=== PATIENT | male | born 1980 ===

== ENCOUNTER 2021-07-30 15:38 | Emergency (ER) | payer BC, OTHER ==
--- NOTE | 2021-07-30 16:16 | EDM.PDOC ---
ED HPI GENERAL MEDICAL PROBLEM - General Chief Complaint: Abdominal Pain Stated Complaint: abdominal pain Time Seen by Provider: 07/30/21 15:45 Source of Information: Reports: Patient History Limitations: Reports: No Limitations - History of Present Illness INITIAL COMMENTS - FREE TEXT/NARRATIVE: Patient presents to the ED for abdominal pain that started today. He was fine yesterday. Did not eat any bad food, no sick contacts. Had a normal bowel movement today. normal urination. no fevers. Attempted to eat breakfast but lost his appetite. no vomiting. pain is diffuse and not localized. The drive here did irritate the pain more. 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 [No Known Home Meds] 07/30/21 [History] Past Medical History - Past Health History Medical/Surgical History: Denies Medical/Surgical History Social & Family History - Tobacco Use Tobacco Use Status *Q: Never Tobacco User - Alcohol Use Alcohol Use History: No Alcohol Use in Last Twelve Months: No - Recreational Drug Use Recreational Drug Use: No Drug Use in Last 12 Months: No ED ROS GENERAL - Review of Systems Review Of Systems: See Below Constitutional: Reports: Decreased Appetite. Denies: Fever, Chills, Malaise, Weakness, Fatigue HEENT: Reports: No Symptoms. Denies: Sinus Problem, Throat Pain, Throat Swelling, Vision Change Respiratory: Reports: No Symptoms. Denies: Shortness of Breath, Cough, Sputum Cardiovascular: Reports: No Symptoms. Denies: Chest Pain, Dyspnea on Exertion, Palpitations Endocrine: Reports: No Symptoms. Denies: Fatigue GI/Abdominal: Reports: Abdominal Pain, Decreased Appetite. Denies: Black Stool, Bloody Stool, Diarrhea, Difficulty Swallowing, Nausea, Vomiting : Reports: No Symptoms. Denies: Frequency, Urgency Musculoskeletal: Reports: No Symptoms Skin: Reports: No Symptoms Neurological: Reports: No Symptoms Psychiatric: Reports: No Symptoms ED EXAM, GI/ABD - Physical Exam Exam: See Below Exam Limited By: No Limitations General Appearance: Alert, WD/WN, No Apparent Distress Eyes: Bilateral: Normal Appearance, EOMI Nose: Normal Inspection, Normal Mucosa Throat/Mouth: Normal Lips, Normal Voice, No Airway Compromise Head: Atraumatic Neck: Normal Inspection, Supple, Non-Tender Respiratory/Chest: No Respiratory Distress, Lungs Clear, Normal Breath Sounds, Chest Non-Tender GI/Abdominal Exam: Tender (rlq, no rebound), Abnormal Bowel Sounds (decreased) Extremities: Normal Inspection, Normal Range of Motion, Normal Capillary Refill Neurological: Alert, Oriented, CN II-XII Intact, Normal Cognition, No Motor /Sensory Deficits Psychiatric: Normal Affect Course - Vital Signs Last Recorded V/S: Last Vital Signs Temp 36.8 C 07/30/21 15:38 Pulse 61 07/30/21 15:38 Resp 20 07/30/21 15:38 BP 151/87 H 07/30/21 15:38 Pulse Ox 100 07/30/21 15:38 - Orders/Labs/Meds Orders: Active Orders 24 hr Category Date Time Status Abdomen Pelvis wo Cont [CT] Stat Exams 07/30/21 16:42 Taken Labs: Laboratory Tests 07/30/21 07/30/21 07/30/21 Range/Units 16:16 16:16 16:16 WBC 9.2 (4.0-10.2) K/uL RBC 4.83 (4.33-5.41) M/uL Hgb 14.5 (13.1-16.8) g/dL Hct 41.1 (39.0-49.0) % MCV 85.1 (84.0-98.0) fL MCH 30.0 (28.2-33.3) pg MCHC 35.3 (31.7-36.0) g/dL RDW 14.2 H (11.2-14.1) % Plt Count 133 L (150-350) K/uL Neut % (Auto) 86.2 H (45.0-80.0) % Lymph % (Auto) 8.4 L (10.0-50.0) % [place] % (Auto) 4.8 (2.0-14.0) % Eos % (Auto) 0.5 (0.0-5.0) % Baso % (Auto) 0.1 (0.0-2.0) % Neut # (Auto) 7.91 H (1.40-7.00) K/uL Lymph # (Auto) 0.77 (0.50-3.50) K/uL [place] # (Auto) 0.44 (0.00-1.00) K/uL Eos # (Auto) 0.05 (0.00-0.50) K/uL Baso # (Auto) 0.01 (0.00-0.20) K/uL Sodium 141 (136-145) mmol/L Potassium 4.0 (3.5-5.1) mmol/L Chloride 103 (98-107) mmol/L Carbon Dioxide 28.5 (21.0-32.0) mmol/L Anion Gap 9.5 (7-15) meq/L BUN 21 H (7-18) mg/dL Creatinine 1.03 (0.51-1.17) mg/dL Est Cr Clr Drug Dosing 91.31 mL/min Estimated GFR (MDRD) > 60 mL/min Glucose 110 H (70-99) mg/dL Lactic Acid 1.0 (0.4-2.0) mmol/L Calcium 9.2 (8.5-10.1) mg/dL Total Bilirubin 1.0 (0.2-1.0) mg/dL AST 17 (15-37) U/L ALT 43 (12-78) U/L Alkaline Phosphatase 81 (46-116) IU/L C-Reactive Protein 2.0 H (<=0.9) mg/dL Total Protein 7.6 (6.4-8.2) g/dL Albumin 4.3 (3.4-5.0) g/dL Lipase 77 (73-393) U/L Specimen Type Urine Color Urine Appearance Urine pH (5.0-9.0) Ur Specific [place] (1.005-1.030) Urine Protein (NEGATIVE) mg/dL Urine Glucose (UA) (NEGATIVE) mg/dL Urine Ketones (NEGATIVE) mg/dL Urine Occult Blood (NEGATIVE) Urine Nitrite (NEGATIVE) Urine Bilirubin (NEGATIVE) Urine Urobilinogen (0.2-1.0) E.U./dL Ur Leukocyte Esterase (NEGATIVE) 07/30/21 Range/Units 16:30 WBC (4.0-10.2) K/uL RBC (4.33-5.41) M/uL Hgb (13.1-16.8) g/dL Hct (39.0-49.0) % MCV (84.0-98.0) fL MCH (28.2-33.3) pg MCHC (31.7-36.0) g/dL RDW (11.2-14.1) % Plt Count (150-350) K/uL Neut % (Auto) (45.0-80.0) % Lymph % (Auto) (10.0-50.0) % [place] % (Auto) (2.0-14.0) % Eos % (Auto) (0.0-5.0) % Baso % (Auto) (0.0-2.0) % Neut # (Auto) (1.40-7.00) K/uL Lymph # (Auto) (0.50-3.50) K/uL [place] # (Auto) (0.00-1.00) K/uL Eos # (Auto) (0.00-0.50) K/uL Baso # (Auto) (0.00-0.20) K/uL Sodium (136-145) mmol/L Potassium (3.5-5.1) mmol/L Chloride (98-107) mmol/L Carbon Dioxide (21.0-32.0) mmol/L Anion Gap (7-15) meq/L BUN (7-18) mg/dL Creatinine (0.51-1.17) mg/dL Est Cr Clr Drug Dosing mL/min Estimated GFR (MDRD) mL/min Glucose (70-99) mg/dL Lactic Acid (0.4-2.0) mmol/L Calcium (8.5-10.1) mg/dL Total Bilirubin (0.2-1.0) mg/dL AST (15-37) U/L ALT (12-78) U/L Alkaline Phosphatase (46-116) IU/L C-Reactive Protein (<=0.9) mg/dL Total Protein (6.4-8.2) g/dL Albumin (3.4-5.0) g/dL Lipase (73-393) U/L Specimen Type Urincc Urine Color Yellow Urine Appearance Clear Urine pH 7.0 (5.0-9.0) Ur Specific [place] 1.025 (1.005-1.030) Urine Protein Negative (NEGATIVE) mg/dL Urine Glucose (UA) Negative (NEGATIVE) mg/dL Urine Ketones 40 H (NEGATIVE) mg/dL Urine Occult Blood Negative (NEGATIVE) Urine Nitrite Negative (NEGATIVE) Urine Bilirubin Negative (NEGATIVE) Urine Urobilinogen 0.2 (0.2-1.0) E.U./dL Ur Leukocyte Esterase Negative (NEGATIVE) Meds: Medications Discontinued Medications Generic Name Dose Route Start Last Admin Trade Name Tavia PRN Reason Stop Dose Admin Ketorolac Tromethamine 30 mg 07/30/21 16:45 07/30/21 17:08 Ketorolac 30 Mg/Ml Sdv IM 07/30/21 16:46 30 mg ONETIME ONE Administration Ondansetron HCl 4 mg 07/30/21 16:45 07/30/21 17:08 Ondansetron 4 Mg/2 Ml Sdv IM 07/30/21 16:46 4 mg ONETIME ONE Administration - Radiology Interpretation Free Text/Narrative:: acute appendicitis with inflammatory change but no perforation or abscess. appendicolith at the base of the appendix, no other acute findings. discussed with radiologist - Re-Assessments/Exams Free Text/Narrative Re-Assessment/Exam: 07/30/21 16:17 Patient denies wanting any medications. Will check labs, urine. normal VSS 07/30/21 16:49 white count is normal but crp elevated. Pain is getting worse. wants medication at this point, will get a ct non contast for possible stone and to evaluate appendix. toradol 30 mg im and zofran 4 mg IM 07/30/21 17:12 Patient is back from CT, vomiting. Has acute appendicitis. Discussed with patient for preference of surgery. attempted to call [facility], only accepting St[facility], stroke and trauma 07/30/21 17:22 Call to [facility] for transfer for acute appendicitis. They do not have beds tonight. Did put him on waiting transfer list. Offered to have him admitted here overnight, IV antibiotics and treat him outpatient tomorrow am and send home from PACU. Put him on list. [phone] call to [facility] and discuss with surgeon Dr. Jacobo, he is happy to accept if they have beds. Call to ED and discuss with charge nurse, they accept him Last ate this am. Has sipped water a few times and vomited since. Prefers to go by POV. Has ride. 07/30/21 17:34 07/30/21 17:38 Departure - Departure Time of Disposition: 17:25 Disposition: DC/Tfer to Acute Hospital 02 Clinical Impression: Appendicitis - Discharge Information Instructions: Appendicitis, Adult, Laparoscopic Appendectomy, Adult, Care After Referrals: PCP,Unknown [Primary Care Provider] - Forms: ED Department Discharge Additional Instructions: Do not eat or drink anything en route to [facility]. go directly to the ED Present to the ER there for surgery with Dr. Jacobo You were given toradol and zofran in the ED. Sepsis Event Note (ED) - Evaluation Sepsis Screening Result: No Definite Risk - Focused Exam Vital Signs: Vital Signs Temp Pulse Resp BP Pulse Ox 07/30/21 15:38 36.8 C 61 20 151/87 H 100 - My Orders Last 24 Hours: My Active Orders 07/30/21 16:42 Abdomen Pelvis wo Cont [CT] Stat - Assessment/Plan Last 24 Hours: My Active Orders 07/30/21 16:42 Abdomen Pelvis wo Cont [CT] Stat
[2021-07-30 16:37] LABS: ANION GAP 9.5 meq/L (7-15); CHLORIDE,CL 103 mmol/L (98-107); SODIUM,NA 141 mmol/L (136-145)
[2021-07-30] MEDS ORDERED: Ketorolac 30 MG/ML SDV IM ONE (16:45)
[2021-07-30] MEDS ORDERED: Ondansetron 4 MG/2 ML SDV IM ONE (16:45)
[2021-07-30] MEDS ORDERED: HYDROmorphone 1 MG/ML Syringe IM ONE (17:50)
--- OUTSIDE RECORDS SUMMARY | 2021-08-04 11:31 | XMSREPORT ---
:[address] [facility] s Address [address] [place] [address] Care Team Providers Name Role Phone Provider, Attributed RESOURCE Unavailable Unavailab kameron Herzog MD Primary Care Provider Unavailable Encounter Details Date Type Department Care Team Description 07/30/2021 - Hospital Encounter [facility] Unlisted, Provider [address] [place] [address] Acute appendicitis 07/31/2021 Medical Center Checo Garrett MD [address] [place] [address] with localized [address] [place] [address] peritonitis, [place] [address] perforation, abscess, or clary grene Allergies No known active allergiesdocumented as of this encounter (statuses as of 07/31/2021) Medications Medication Sig Dispensed Refills Start Date End Date Status HYDROcodone-acetam Take 1-2 8 tablet 0 07/30/2021 Active inophen (NORCO) tablets by 5-325 mg mouth Every 4 tabletIndications: hours as Acute appendicitis needed for moderate pain predniSONE 10 mg 20mg Daily 10 tablet 1 01/08/2019 Discontinued tabletIndications: for five day 1 (Stop Taking at Sore throat Discharg e) amoxicillin Take 1.75 10 tablet 3 01/08/2019 Discont inued (AMOXIL) 500 mg tablets (875 1 ( Stop Taking at tabletIndications: mg) by mouth Discharge) Sore throat Every 12 hours documented as of this encounter (statuses as of 07/31/2021) Active Problems Problem Noted Date Acute appendicitis with localized peritonitis, without perforation, 07/31/2021 abscess, or gangrene Routine general medical examination at [facility] 06/05/2008 documented as of this encounter (statuses as of 07/31/2021) Immunizations Name Administration Dates Next Due INFLUENZA SINGLE DOSE 0.5ML 6 MONTHS AND UP 07/30/2021 () TDAP 06/05/2008 documented as of this encounter Social History Tobacco Use Types Packs/Day Years Used Date Never Smoker Smokeless Tobacco: Never Used Alcohol Use Standard Drinks/Week Comments Yes 3 (1 standard drink = 0.6 oz pure alcoho l) Alcohol Habits Answer Date Recorded How often do you have a drink containing alcohol? 2-3 times a week 07/31/2021 How many drinks containing alcohol do you have on a 1 or 2 07/31/2021 typical day when you are drinking? How often do you have six or more drinks on one Never 07/31/2021 occasion? Comment: Not asked Sexually Active Control Partners Comments Yes Female Sex Assigned at Date Recorded Not on file documented as of this encounter Last Filed Vital Signs Vital Sign Reading Time Taken Comments Blood Pressure 119/72 07/31/2021 7:34 AM BRACE MAKER Pulse 85 07/31/2021 7:34 AM BRACE MAKER Temperature 36.8 C (98.2 F) 07/31/2021 7:34 AM BRACE MAKER Respiratory Rate 16 07/31/2021 7:34 AM BRACE MAKER Oxygen Saturation 95% 07/31/2021 7:34 AM BRACE MAKER Inhaled Oxygen Concentration - - Weight 73.8 kg (162 lb 9.6 oz) 07/30/2021 8:01 PM BRACE MAKER Height 172.7 cm (5' 8") 07/30/2021 8:01 PM BRACE MAKER Body Mass Index 24.72 07/30/2021 8:01 PM BRACE MAKER documented in this encounter Functional Status Functional Status Response Date of Assessment Do you have difficulty with walking, balance, climbing No 07/31/2021 stairs, or had a fall in the last 3 months? documented as of this encounter Discharge Summaries Checo Garrett MD - 07/31/2021 9:40 AM CST Discharge Summary Attending Physician: Checo Garrett MD Admit Date: 07/30/2021 Discharge Date: 07/31/2021 Primary Care Physician: NO PCP, Discharge Diagnoses Acute appendicitis Preliminary Discharge Medications This list of medications is preliminary and tentative. Please see the After Visit Summary for the final and accurate medication list. Discharge Medication List START taking these medications START: HYDROcodone-acetaminophen 5-325 mg tablet Commonly known as: NORCO Dose: 1-2 tablet Take 1-2 tablets by mouth Every 4 hours as needed for moderate pain STOP taking these medications STOP: amoxicillin 500 mg tablet Commonly known as: AMOXIL STOP: predniSONE 10 mg tablet Where to Get Your Medications Information about where to get these medications is not yet available Ask your nurse or doctor about these medications HYDROcodone-acetaminophen 5-325 mg tablet Procedures Performed and Findings Laparoscopic appendectomy, 07/30/2021 Consultations Obtained General surgery, Checo Garrett M.D. Code Status Full Code Discharge Disposition Home Diet on Discharge General Activity on Discharge Ad maria antonia Discharge Instructions Discharge Instructions Call or return if you have any problems such as uncontrolled pain, fever, chills, redness or drainage from the incision or other concerns. Do not lift over 10 lbs. for 2 weeks. You may remove the dressing in 2 days and shower normally thereafter. Don't soak in a tub for 10 days. Tests Pending at Discharge Unresulted Pathology Orders (From admission, onward) Start Ordered 07/30/212140 TISSUE EXAM RELEASE UPON ORDERING, Routine Comments: Specimen A: none Start: 07/30/212140 End: None 07/30/212140 Follow-Up Scheduled Return to clinic in 1 week. Hospital Course 40 yo man presented with migratory abdominal pain that localized in the RLQ. He had nausea and vomiting. He had been medicated so arrived nontender. CT had shown appendicitis. He underwent laparoscopic appendectomy with a finding of acute appendicitis. Postop he did well and tolerated diet. documented in this encounter Discharge Instructions Leyla Ortiz RN - 07/31/2021 Images from the original note were not included. Call or return if you have any problems such as uncontrolled pain, fever, chills, redness or drainage from the incision or other concerns. Do not lift over 10 lbs. for 2 weeks. You may remove the dressing in 2 days and shower normally thereafter. Don't soak in a tub for 10 days. [place] Oral Tablet 5 mg/325 mg Uses For pain. Instructions This medicine may be taken with or without food. Keep the medicine at room temperature. Avoid heat and direct light. To reduce constipation, eat high fiber foods, drink plenty of water and exercise. Please tell your doctor and pharmacist about all the medicines you take. Include both prescription and [id number] medicines. Also tell them about any vitamins, herbal medicines, or anything else you take for your health. It is very important that you follow your doctor's instructions for all blood tests. Do not take more than 8 pills in a day. Cautions This medicine contains an opioid. Though it helps many people, this medicine may sometimes cause addiction, especially if it is used for a long time. This risk for addiction may be higher if you have asubstance use disorder - such as overuse of or addiction to drugs or alcohol. Speak with your doctorabout the benefits and risks of using this medicine. Ask your doctor or pharmacist if you should have naloxone on hand to treat opioid overdose. Teach your family or household members about the signs of an opioid overdose and how to treat it. If you stop this medicine suddenly, after using it regularly for a long time, you may have withdrawal symptoms. Your doctor may ask you to slowly reduce your dose before stopping it. Tell your doctor right away if you notice any symptoms of withdrawal. Withdrawal symptoms can include unusual sweating,watering eyes, runny nose, chills, stomach pain, diarrhea, yawning, muscle aches, irritability, restlessness, anxiety, trouble sleeping, or thoughts of suicide. Tell your doctor and pharmacist if you ever had an allergic reaction to a medicine. Symptoms of an allergic reaction can include trouble breathing, skin rash, itching, swelling, or severe dizziness. Do not use the medication any more than instructed. If possible, avoid using with marijuana or other medicines that can cause dizziness or drowsiness. These include allergy/cold products, muscle relaxers, sleep aids, and pain relievers. Your ability to stay alert or to react quickly may be impaired by this medicine. Do not operate machinery or drive while on this medicine. Do not drink beverages with alcohol while on this medicine. Tell the doctor or pharmacist if you are , planning to be , or . This medicine can hurt a new baby in the womb. If you become while on this medicine, tell your doctor immediately. Your doctor may switch you to a different medicine. Ask your pharmacist if this medicine can interact with any of your other medicines. Be sure to tell them about all the medicines you take. Please tell all your doctors and dentists that you are on this medicine before they provide care. Do not start or stop any other medicines without first speaking to your doctor or pharmacist. This medicine should be used with caution in patients with breathing difficulties. Call your doctor right away if you notice slow or shallow breathing. Do not share this medicine with anyone who has not been prescribed this medicine. This medicine contains acetaminophen. There are many medicines with acetaminophen. Taking these medicines together can cause you to get too much acetaminophen. This can cause serious liver problems. Look carefully on the package of all your medicines to see if acetaminophen is included. Ask your pharmacist which medicines you can take safely. Side Effects The following is a list of some common side effects from this medicine. Please speak with your doctor about what you should do if you experience these or other side effects. constipation dizziness drowsiness or sedation lack of energy and tiredness itching nausea skin irritation such as redness, itching, rash, or burning stomach upset or abdominal pain sweating vomiting If you have any of the following side effects, you may be getting too much medicine. Please contact your doctor to let them know about these side effects. changes in memory, mood, or thinking difficulty concentrating confusion fainting slow heartbeat low blood pressure muscle weakness cold, moist skin blurring or changes of vision Call your doctor or get medical help right away if you notice any of these more serious side effects: decreased awareness or responsiveness breathing interruption during sleep shallow, irregular breathing chest pain hallucinations (unusual thoughts, seeing or hearing things that are not real) symptoms of liver damage (such as yellowing of skin or eyes, dark urine, unusual tiredness or weakness; severe stomach or back pain) pale or blue skin, lips or fingernails seizures shortness of breath light colored stool difficulty or discomfort urinating severe or persistent vomiting A few people may have an allergic reaction to this medicine. Symptoms can include difficulty breathing, skin rash, itching, swelling, or severe dizziness. If you notice any of these symptoms, seek medical help quickly. Extra Please speak with your doctor, nurse, or pharmacist if you have any questions about this medicine. [email or web address] IMPORTANT NOTE: This document tells you briefly how to take your medicine, but it does not tell you all there is to know about it.Your doctor or pharmacist may give you other documents about your medicine. Please talk to them if you have any questions.Always follow their advice. There is a more complete description of this medicine available in [place].Scan this code on your smartphone or tablet or use the web address below. You can also ask your pharmacist for a printout. If you have any questions,please ask your pharmacist. 2020 lmbang. After Laparoscopic Appendectomy (Appendix Removal) You have had a surgery to remove your appendix. The appendix is a narrow pouch attached to the lowerright part of your large intestine. During your surgery, the doctor made 2 to 4 small cuts (incisions). One was near your belly button. The others were on other parts of your belly. Through one incision, the doctor inserted a thin tube with a camera attached (laparoscope). Other surgery tools were used in the other incisions. While you recover you mayhave pain in your shoulder and chest for up [id number] after surgery. This is common. It is caused by carbon dioxide gas used during the surgery. It will go away. Home care Keep your incisions clean and dry. Don't pull off the thin strips of tape covering your incision. They should fall off on their own in a week or so. Wear loose-fitting clothes. This will help cause less irritation around your incisions. You can shower as normal. Gently wash around your incisions with soap and water. Dont take a bath until your incisions are fully healed. Dont drive until you have stopped taking prescription pain medicine. Dont lift anything heavier [id number] (4.5 kg) until yourhealthcare providersays its OK. Limit sports and strenuous activities [id number]. Resume light activities around your home as soon as you feel comfortable. What to eat Eat a bland, low-fat diet. This can include foods such as: Well-cooked soft cereals Mashed potatoes Plain toast or bread Plain crackers Plain pasta Rice Cottage cheese Pudding Low-fat yogurt Low-fat milk Ripe bananas Drink 6 to 8 glasses of water a day, unless directed otherwise. If you are constipated, take a fiberlaxative or a stool softener. When to call yourhealthcare provider Call yourhealthcare providerright away if you have any of the following: Swelling, pain, fluid, or redness in the incision that gets worse [id number] (38C) or higher, or as directed by your healthcare provider Belly (abdominal) pain that gets worse Severe diarrhea, bloating, or constipation Nausea or vomiting Trouble breathing or shortness of breath Leg swelling [employer] last reviewed this educational content on 01/06/201919990606-4248 The [employer]. All rights reserved. This information is not intended as a substitute for professional medical care. Always follow your healthcare professional's instructions. documented in this encounter Medications at Time of Discharge Medication Sig Dispensed Refills Start Date End Date HYDROcodone-acetaminophen Take 1-2 tablets by 8 tablet 0 1 09/30/2020 (NORCO) 5-325 mg mouth Every 4 hours tabletIndications: Acute as needed for appendicitis moderate pain documented as of this encounter Progress Notes Leyla Chino RN - 07/31/2021 10:11 AM CST Problem: PHYSICAL COMFORT Goal: CLIENT SATISFACTION: PAIN MANAGEMENT Description: DEFINITION: Extent of positive perception of nursing care to relieve pain. 1=Not at all satisfied, 2=Somewhat satisfied, 3=Moderately satisfied, 4=Very satisfied, 5=Completely satisfied. 07/31/2021 1011 by Leyla Chino RN Outcome: NOC Rating 4 Leyla Villegas RN - 07/31/2021 10:11 AM CST Problem: PHYSICAL COMFORT Goal: CLIENT SATISFACTION: PAIN MANAGEMENT Description: DEFINITION: Extent of positive perception of nursing care to relieve pain. 1=Not at all satisfied, 2=Somewhat satisfied, 3=Moderately satisfied, 4=Very satisfied, 5=Completely satisfied. Outcome: NOC Rating 4 Flowsheets (Taken 07/31/2021 1011) Patient Progress: Pain controlled with pain medications. PRN norco given with relief. Checo Aguillon MD - 07/31/2021 8:31 AM CST This is 40yr male who is status post laparoscopic appendectomy. He has pain but [facility] Vital Signs Min/Max (last 24 hours) Flowsheet Row Name Min Max Temp 97.3 F (36.3 C) 98.3 F (36.8 C) BP: Systolic 114 159 BP: Diastolic 70 104 Pulse 61 111 Resp 16 18 SpO2 93 % 98 % MAP (mm Hg) 87 mm Hg 119 mm Hg Intake/Output Summary (Last 24 hours) at 07/31/2021 0831 Last data filed at 07/31/2021 0734 Gross per 24 hour Intake 2272 ml Output 190 ml Net 2082 ml Wt Readings from Last 3 Encounters: 07/30/21 73.8 kg (162 lb 9.6 oz) 01/08/19 73.2 kg (161 lb 4.8 oz) Exam: General Appearance: alert, well appearing, and in no distress Incision: Dressed and dry Labs (Last day) No results found within the past day. Impression: POD # 1 status post laparoscopic appendectomy Plan: Wean over to PO meds and likely discharge today. Fei Balderas RN - 07/31/2021 6:28 AM CST Problem: PHYSICAL COMFORT Goal: CLIENT SATISFACTION: PAIN MANAGEMENT Description: DEFINITION: Extent of positive perception of nursing care to relieve pain. 1=Not at all satisfied, 2=Somewhat satisfied, 3=Moderately satisfied, 4=Very satisfied, 5=Completely satisfied. 07/31/2021626 by Fei Anthony RN Outcome: NOC Rating 4 Flowsheets (Taken 07/31/2021626) Patient Progress: Patients pain well controlled with toradol and norco. Patient slept well during the night. Patient ate some crackers and did well. E MAKER Jane Bills RN - 07/30/2021 10:39 PM CST Problem: RISK FOR INJURY Goal: POST-PROCEDURE RECOVERY Description: DEFINITION: Extent to which an individual returns to baseline function following a procedure or minor surgery requiring anesthesia or sedation. 1=Severe deviation from normal range, 2=Substantial deviation from normal range, 3=Moderate deviation from normal range, 4=Mild deviation from n ormal range, 5=No deviation from normal range Outcome: Outcome acceptable for discharge Goal: SURGICAL RECOVERY: IMMEDIATE POST-OPERATIVE Description: DEFINITION: Extent to which an individual achieves physiological baseline function following major surgery requiring anesthesia. 1=Severe deviation from normal range, 2=Substantial deviation from normal range, 3=Moderate deviation from normal range, 4=Mild deviation from normal range, 5=No deviation from normal range. Outcome: Outcome acceptable for discharge ei Anthony RN - 07/30/2021 8:14 PM CST Problem: PHYSICAL COMFORT Goal: CLIENT SATISFACTION: PAIN MANAGEMENT Description: DEFINITION: Extent of positive perception of nursing care to relieve pain. 1=Not at all satisfied, 2=Somewhat satisfied, 3=Moderately satisfied, 4=Very satisfied, 5=Completely satisfied. Flowsheets (Taken 07/30/20212012) Initial Score: 4 Target Score: 5 Plan of care reviewed with: Patient Patient specific goal for the day: Keep pain at or below 5/10 for shift Patient specific goal for the stay: Have surgery for appendix, discharge home Achieve goal for stay: By discharge E MAKER documented in this encounter H&P Notes Checo Garrett MD - 07/30/2021 8:11 PM CST Impression: Acute appendicitis Plan: I discussed the benefits, alternatives and risks of laparoscopic appendectomy with the patientincluding risks for bleeding, infection, visceral injury, anesthetic risk, risk for conversion to anopen procedure and risk of negative or other findings. The patient expressed understanding and gives consent to proceed. HPI / History / ROS This is a(n) 40yr male seen in consultation from Alejandra Cueto complaining of abdominal pain. He has noted it since early this morning. It has gradually moved to the [facility]. He has had nausea and vomiting but does not complain of pain with the bumps in the road. He received pain medications that have helped substantially. He denies prior similar episodes. He has not received his Covid vaccine. Past Medical History: Diagnosis Date Hypertension No DM, asthma, NH or CVA PSH: none No Known Allergies Prior to Admission medications Medication Sig Start Date End Date Taking? Authorizing Provider predniSONE 10 mg tablet 20mg Daily for five day 01/08/19 Jaime Kim MD amoxicillin (AMOXIL) 500 mg tablet Take 1.75 tablets (875 mg) by mouth Every 12 hours 01/08/19 Jaime Kim MD Current Facility-Administered Medications Medication Dose Route Frequency Provider Last Rate Last Admin lactated ringers IV solution IV Continuous Checo Garrett MD lactated ringers IV solution (bolus) SOLN 500 mL 500 mL IV Bolus Checo Garrett MD cefepime (MAXIPIME) 1,000 mg in sterile water for injection 10 mL 1,000 mg IV Now Checo Garrett MD Social History Socioeconomic History Marital status: Spouse name: Not on file Number of children: Not on file Years of education: Not on file Highest education level: Not on file Occupational History Not on file Tobacco Use Smoking status: Never Smoker Smokeless tobacco: Never Used Substance and Sexual Activity Alcohol use: Yes Alcohol/week: 3.0 standard drinks Types: 3 Shots of liquor per week Drug use: Never Sexual activity: Yes Partners: Female Other Topics Concern Not on file Social History Narrative Not on file Social Determinants of Health Financial Resource Strain: Not on file Food Insecurity: Not on file Transportation Needs: Not on file Physical Activity: Not on file Stress: Not on file Social Connections: Not on file Intimate Partner Violence: Not on file Housing Stability: Not on file Review of Systems - History obtained from the patient General ROS: negative Constitutional ROS: negative Respiratory ROS: no cough, shortness of breath, or wheezing Cardiovascular ROS: no chest pain or dyspnea on exertion Gastrointestinal ROS: SEE HPI Physical / Results BP 150/97 Pulse 91 Temp 97.9 F (36.6 C) Resp 18 Ht 1.727 m (5' 8") Wt 73.8 kg (162 lb 9.6 oz) SpO2 98% BMI 24.72 kg/m2 Physical Exam: General Appearance: alert, well appearing, and in no distress Mental Status: alert, oriented to person, place, and time Chest: clear to auscultation, no wheezes, rales or rhonchi, symmetric air entry Heart: normal rate, regular rhythm, normal S1, S2, no murmurs, rubs, clicks or gallops Abdomen: soft, nontender, nondistended, no masses or organomegaly CT shows findings consistent with appendicitis. E MAKER documented in this encounter OR Notes Operative Note - Checo Garrett MD - 07/30/2021 10:16 PM CST Preoperative diagnosis: Acute appendicitis Postoperative diagnosis: Acute appendicitis Operation: Laparoscopic appendectomy Surgeon: Checo Garrett M.D. Anesthesia: General by endotrachial tube plus 0.5% bupivacaine local Specimen: Appendix Estimated blood loss: 30 mL Procedure: The patient was placed supine and after satisfactory induction of general anesthesia wassterilely prepped and draped. 0.5% bupivacaine local anesthetic was infused at the site of each intended incision. An infraumbilical 5 mm incision was made. The Veress needle was inserted and drop test showed good intra-abdominal positioning. A 5 mm trocar was introduced. The laparoscope was introduced through this showing atraumatic intraperitoneal position. Therefore a left suprapubic trocar was introduced. The appendix was visualized and noted to be hyperemic and have fibrinopurulent exudate consistent with acute appendicitis. Therefore a 12 mm port was introduced in the left mid abdomen. The appendix was mobilized with blunt and sharp dissection. The mesoappendix was dissected free of the base of the appendix and divided with an EndoGIA stapler. This took 3 loads due to the long appendix and mesoappendix. The appendix was then divided with an EndoGIA stapler at its junction with the cecum. The appendix was placed in an Endo retrieval bag and brought out through the 12 mm port site. The staple lines appeared hemostatic. Irrigation and suctioning returned clear. The Tushar-Nacho device was used to pass an O Vicryl to close the 12 mm port defect. The CO2 was allowed to escape as the trocars were removed. The skin was closed with 4-0 undyed Vicryl in running subcuticularfashion. All needle, sponge and instrument counts were reported as correct. The patient tolerated the procedure well. documented in this encounter Miscellaneous Notes Clinical Team - Fei Anthony RN - 07/31/2021 2:41 AM CST Patient resting. Patient up to bathroom to void, asked for pain meds after ambulating. Patient requested crackers. Will continue to monitor. linical Team - Fie Anthony RN - 07/30/2021 8:55 PM CST Patients will be staying overnight due to not driving or having ride. E MAKER documented in this encounter Plan of Treatment Name Type Priority Associated Diagnoses Order S chedule TISSUE EXAM PATH Routine Acute appendicitis Release U yair Ordering for 1 Occurrences sta rting 07/30/2021 documented as of this encounter Visit Diagnoses Diagnosis Acute appendicitis Acute appendicitis without mention of pe ritonitis Acute appendicitis with localized perito nitis, without perforation, abscess, or gangrene documented in this encounter Discharge Diagnoses Not on filedocumented in this encounter Administered Medications Medication Order MAR Action Action Date Dose Rate Site HYDROcodone-acetaminophen Given 07/31/2021 9:52 AM BRACE MAKER 2 tablet s (NORCO) 5-325 mg tablet 1-2 tablet 1-2 tablet, Oral, Every four hours prn, Starting on Rebeca 07/30/21 at 2306, Until Discontinued, moderate pain, Post - Op, Total dose of acetaminophen from all acetaminophen containing products should not exceed 4 grams (4000 mg) per day. Given 07/31/2021 2:21 AM BRACE MAKER 2 tablets lactated ringers IV solution New Bag 07/31/2021 4:33 AM BRACE MAKER 125 mL/hr IV, at 125 mL/hr, Continuous, Starting on Rebeca 07/30/21 at 2325, Until Discontinued, 1,000 mL, Post - Op Already Infusing 07/30/2021 11:06 PM BRACE MAKER 125 mL/hr sodium chloride 0.9% flush (adult) 10 mL 10 mL, IV, Two times a day and prn, First dose on Rebeca 07/30/21 at 2100, Until Discontinued, 10 mL, Flush unused lumens as scheduled and as often as necessary before and after meds. Use a push/pause technique when flushing to create turbulence. Medication Order MAR Action Action Date Dose Rate Site cefepime (MAXIPIME) 1,000 mg in Given 07/30/2021 8:53 PM BRACE MAKER 1, 000 mg sterile water for injection 10 mL 1,000 mg, IV, Now, 1 dose, On Rebeca 07/30/21 at 2015, 10 mL, Administer over 5 minutes. Administer over 5 minutes. fentaNYL 100 mcg/2 mL preservative free Given 07/30/2021 10:37 P M BRACE MAKER 25 mcg injection solution 25-50 mcg 25-50 mcg, IV, Every ten minutes prn, Starting on Rebeca 07/30/21 at 2148, Until Rebeca 07/30/21 at 2252, while in the PACU, 2 mL, PACU, Maximum 200 mcg total dose. ketorolac (TORADOL) intravenous injection 15 Given 6:20 AM BRACE MAKER 15 mg mg 15 mg, IV, Every six hours prn, 2 doses, Starting on Rebeca 07/30/21 at 2306, Until Tue07/31/21 at 0620, moderate pain, severe pain, 1 mL, Post - Op, Do not administer within 6 hours of an oral NSAID (e.g., ibuprofen or naproxen). If preference is to further dilute for IV administration: First draw up patient-specific dose, then dilute to 10 mL with 0.9% sodium chloride. Given 07/30/2021 11:13 PM BRACE MAKER 15 mg lactated ringers IV solution Already Infusing 07/30/2021 11:04 PM BRACE MAKER 150 mL/hr IV, at 150 mL/hr, Continuous, Starting on Rebeca 07/30/21 at 2115, Until Rebeca 07/30/21 at 2306, 1,000 mL, After bolus complete New Bag 07/30/2021 10:01 PM BRACE MAKER New Bag 07/30/2021 8:54 PM BRACE MAKER 150 mL/hr documented in this encounter Active and Recently Administered Medications Times are shown in BRACE [employer]KER. Medication Order 07/29/2021 07/30/2021 07/31/2021 cefepime (MAXIPIME) 1,000 mg in sterile water for injection 10 mL (COMPLETED) 2052 (Given - Provider: Fei Anthony RN) 1,000 mg, IV, Now, 1 dose, On Rebeca at 2015, 10 mL, Administer over 5 minutes. Administer over 5 minutes. docusate sodium (COLACE) capsule 100 mg 100 mg, Oral, Two times a day, First dos e on 08/01/21 at 0900, Until Discontinued, Post - Op, Start after first bowel movement sodium chloride 0.9% flush (adult) 10 mL 2053 (Already Infusing. - Provider: Fei Anthony RN) 0748 (Not Indicated - Provider: Leyla johnson RN)2100 (Due) 10 mL, IV, Two times a day and prn, Firs t dose on Rebeca 07/30/21 at 2100, Until Discontinued, 10 mL, Flush unused lumens as scheduled and as often as necessary before and after meds. Use a push/pause technique when flushing to create turbulence. Medication Order 07/29/2021 07/30/2021 07/31/2021 lactated ringers IV solution (CANCELED) 2053 (New Bag - Provider: Fei Anthony RN)2199 (Paused - Provider: MARISSA Pandya - Comment: Switch to gravity)2200 (New Bag - Provider: MARISSA Pandya) IV, at 150 mL/hr, Continuous, Starting o n Rebeca 07/30/21 at 2115, Until Rebeca 07/30/21 at 2306, 1,000 mL, After bolus complete 2221 (Anesthesia Volume Adjustment - Provider: MARISSA Pandya)2303 (Already Infusing - Provider: Liv Joyner RN - Comment: Infusing from surgery.) lactated ringers IV solution 2306 (Alrea dy Infusing - Provider: Liv Jonyer RN - Comment: already infusing from surgery.) 0433 (New Bag - Provider: Fei Anthony RN) IV, at 125 mL/hr, Continuous, Starting o n Rebeca 07/30/21 at 2325, Until Discontinued, 1,000 mL, Post - Op Medication Order 07/29/2021 07/30/2021 07/31/2021 acetaminophen (TYLENOL) tablet 650 mg 650 mg, Oral, Every four hours prn, Star ting on Rebeca 07/30/21 at 2306, Until Discontinued, mild pain, Post - Op, Adult patients: Total dose of acetaminophen from all acetaminophen containing products binta uld not exceed 4 grams (4000 mg) per day . Pediatric Patients 0 - 3 months: Maximum of 60 mg/kg/24 hours of acetaminophen. Pediatric Patients older than 3 months: Maximum of 75 mg/kg/24 hours of acetaminophen (Never exceeding 4 grams/day). bupivacaine (MARCAINE;SENSORCAINE) 0.5 % preservative free injection solution (CANCELED) 2139 (Given - Provider: Checo Garrett MD) INTRAOP, Starting on Rebeca 07/30/21 at 214 0, Until Rebeca 07/30/21 at 2224, Intra - Op fentaNYL 100 mcg/2 mL preservative free injection solu tion 25-50 mcg (CANCELED) 2236 (Given - Provider: Jane Bills RN) 25-50 mcg, IV, Every ten minutes prn, St arting on Rebeca 07/30/21 at 2148, Until Rebeca 07/30/21 at 2252, while in the PACU, 2 mL, PACU, Maximum 200 mcg total dose. HYDROcodone-acetaminophen (NORCO) 5-325 mg tablet 1-2 tablet 220 (Given - Provider: Fei Anthony, PADMINI)951 (Given - Provider: Leyla Chino RN) 1-2 tablet, Oral, Every four hours prn, Starting on Rebeca 07/30/21 at 2306, Until Discontinued, moderate pain, Post - Op, Total dose of acetaminophen from all acetaminophen containing products should not exceed 4 grams (4000 mg) per day. ibuprofen (ADVIL;MOTRIN-IB) tablet 400 mg 400 mg, Oral, Every six hours prn, Start ing on Rebeca 07/30/21 at 2306, Until Discontinued, mild pain, Post - Op, Maximum adult dose should not exceed 3200 mg/day. Tablet should not be crushed or chewed. ketorolac (TORADOL) intravenous injection 15 mg (COMPLETED) 2313 (Given - Provider: Liv Joyner RN) 0620 (Given - Provider: Fei payne RN) 15 mg, IV, Every six hours prn, 2 doses, Starting on Rebeca 07/30/21 at 2306, Until Tue07/31/21 at 2359, moderate pain, severe pain, 1 mL, Post - Op, Do not administer within 6 hours of an oral NSAID (e.g ., ibuprofen or naproxen). If preference is to further dilute for IV administration: First draw up patient-specific dose, then dilute to 10 mL with 0.9% sodium chloride. nalOXone (NARCAN) injection solution (vial) 0.2 mg 0.2 mg, Injection, Every two minutes prn , Starting on Rebeca 07/30/21 at 2306, Until Discontinued, other (Specify), opioid induced respiratory depression - PARTIAL reversal, 1 mL, Post - Op, PARTIAL REVERS AL/RESPIRATORY DEPRESSION If respiratory rate less than 8/minute - call rapid response and administer (until respiratory rate increases to 10/minute). Give IV (preferred), IM or SUBQ nalOXone (NARCAN) injection solution (vial) 0.4 mg 0.4 mg, Injection, Every two minutes prn , Starting on Rebeca 07/30/21 at 2306, Until Discontinued, other (Specify), opioid induced respiratory arrest - FULL reversal, 1 mL, Post - Op, FULL REVERSAL/RESPIRA TORY ARREST If patient is not breathing - call CODE BLUE and administer. Give IV (preferred), IM or SUBQ ondansetron (ZOFRAN) injection solution 4 mg 4 mg, IV, Every eight hours prn, Startin g on Rebeca 07/30/21 at 2306, Until Discontinued, nausea, 2 mL, Post - Op, If preference is to further dilute for IV administration: First draw up patient-specific d ose, then dilute to 10 mL with 0.9% sodium chloride. sodium chloride irrigation 0.9 % solution (CANCELED) 2139 (Given - Provider: Checo Garrett MD) INTRAOP, Starting on Rebeca 07/30/21 at 214 0, Until Rebeca 07/30/21 at 2224, Intra - Op documented in this encounter Care Teams Flight Test Supervisor Relationship Specialty Start Date End Date Provider, No Attributed, PCP - Attributed Provider 04/09 12/[address] Pcp, [place], PCP - General 07/30/21 You have no PCP on file documented as of this encounter
== END 2021-07-30 18:30 ==
LOC: LL.ED 15:38
DX: K37 Unspecified appendicitis (principal)
CPT/HCPCS: 36415; 74176; 80053; 81003; 83605; 83690; 85025; 86140; 96372; 99285-25; J1170; J1885; J2405

== ENCOUNTER 2021-08-04 16:36 | Inpatient (IN) | payer BC ==
[2021-08-04] MEDS ORDERED: Sodium Chloride 0.9% 10 ML Syringe FLUSH PRN (16:43)
[2021-08-04] MEDS ORDERED: Iopamidol 612 MG/ML 100 ML Bottle IVPUSH STA (16:45)
[2021-08-04] MEDS ORDERED: Sodium Chloride 0.9% 1,000 ML IV ONE (16:45)
[2021-08-04] MEDS ORDERED: Iopamidol 612 MG/ML 100 ML Bottle ONE (16:49)
[2021-08-04] MEDS ORDERED: Piperacillin/Tazobactam 3.375 GM in Sodium Chloride 0.9% 100 ML IV SCH (18:15)
[2021-08-04] MEDS ORDERED: Morphine 10 MG/ML Syringe IVPUSH ONE (18:15)
[2021-08-04] MEDS ORDERED: Ondansetron 4 MG/2 ML SDV IVPUSH ONE (18:16)
[2021-08-04] MEDS ORDERED: Acetaminophen 500 MG Tab PO ONE (19:39)
--- NOTE | 2021-08-04 20:52 | EDM.PDOC ---
ED HPI GENERAL MEDICAL PROBLEM - General Chief Complaint: Abdominal Pain Stated Complaint: right lower quadrant pain Time Seen by Provider: 08/04/21 16:37 Source of Information: Reports: Patient History Limitations: Reports: No Limitations - History of Present Illness INITIAL COMMENTS - FREE TEXT/NARRATIVE: Pt. was brought to ER from clinic by Mehul Knight PA-C for further evaluation and treatment for concerns of post op abdominal discomfort, fever, and diaphoresis. Pt. did have some cursory lab work in clinic including CBC, CMP, and CRP. He had no leukocytosis. He was afebrile in clinic. He did have an elevated CRP and mildly elevated LFTs. Kidney function and electrolytes were all WNL. Pt. underwent laparoscopic appendectomy on 07/30/2021 at [facility] in [place]. He d id well initially postoperatively, but for the past approx. 2 days he has been experiencing increased abdominal discomfort, fullness, fever, and intermittent diaphoresis. He states that he is passing gas. Denies any urinary frequency, urgency, or dysuria. He states that he has been able to eat and has not been experiencing any nausea or vomiting. Pt. denies any cough or chest congestion. No sore throat or rhinorrhea. Denies any chest pain or shortness of breath. Again, pt. underwent appendectomy at [facility]. Typical referral facilities, including [facility] were (and continue to be) on diversion and he was accepted at [facility]. Onset Date: 08/03/21 Location: Reports: Abdomen, Generalized Associated Symptoms: Reports: Diaphoresis, Fever/Chills, Malaise. Denies: Nausea/Vomiting, Shortness of Breath RLQ Pain Score (Numeric/FACES): 5 - Related Data Allergies Allergy/AdvReac Type Severity Reaction Status Date / Time No Known Allergies Allergy Verified 08/04/21 16:42 Home Meds: Home Meds . [No Known Home Meds] 07/30/21 [History] Past Medical History - Past Health History Medical/Surgical History: Denies Medical/Surgical History ED ROS GENERAL - Review of Systems Review Of Systems: See Below Constitutional: Reports: No Symptoms HEENT: Reports: No Symptoms Respiratory: Reports: No Symptoms Cardiovascular: Reports: No Symptoms Endocrine: Reports: No Symptoms GI/Abdominal: Reports: Abdominal Pain, Decreased Appetite, Flatus (passing gas), Other (fullness). Denies: Black Stool, Bloody Stool, Constipation, Distension, Hematemesis, Hematochezia, Melena, Nausea, Vomiting : Reports: No Symptoms Musculoskeletal: Reports: No Symptoms Skin: Reports: No Symptoms Neurological: Reports: No Symptoms Psychiatric: Reports: No Symptoms Hematologic/Lymphatic: Reports: No Symptoms Immunologic: Reports: No Symptoms ED EXAM, GENERAL - Physical Exam Exam: See Below Exam Limited By: No Limitations General Appearance: Alert, WD/WN, No Apparent Distress Respiratory/Chest: No Respiratory Distress, Lungs Clear, Normal Breath Sounds, No Accessory Muscle Use, Chest Non-Tender Cardiovascular: Normal Peripheral Pulses, Regular Rate, Rhythm, No Edema, No Gallop, No JVD, No Murmur, No Rub Peripheral Pulses: 4+: Radial (R) GI/Abdominal: Normal Bowel Sounds, Soft, Non-Tender, No Organomegaly, No Distention, No Mass, Other (No peritoneal signs noted ). No: Distended, Guarding, Rigid, Rebound Rectal (Males) Exam: Deferred Back Exam: Normal Inspection, Full Range of Motion Extremities: Normal Inspection, Normal Range of Motion, Non-Tender, No Pedal Edema, Normal Capillary Refill Neurological: Alert, Oriented, CN II-XII Intact, Normal Cognition, Normal Gait, Normal Reflexes, No Motor/Sensory Deficits Psychiatric: Normal Affect, Normal Mood Skin Exam: Warm, Dry, Intact, Normal Color, No Rash Course - Vital Signs Last Recorded V/S: Last Vital Signs Temp 38.8 C H 08/04/21 19:43 Pulse 72 08/04/21 16:37 Resp 20 08/04/21 16:37 BP 147/85 H 08/04/21 16:37 Pulse Ox 100 08/04/21 16:37 - Orders/Labs/Meds Orders: Active Orders 24 hr Category Date Time Status Patient Status [ADT] Routine ADT 08/04/21 19:42 Active Peripheral IV Care [RC] . DIRECTED Care 08/04/21 16:43 Active Abdomen Pelvis w Cont [CT] Stat Exams 08/04/21 16:43 Taken PROCALCITONIN [REF] Stat Lab 08/04/21 16:48 Received Piperacillin/Tazobactam [Zosyn] 3.375 gm Med 08/04/21 18:15 Active Sodium Chloride 0.9% [Normal Saline] 100 ml IV Q6H Sodium Chloride 0.9% [Saline Flush] Med 08/04/21 16:43 Active 10 ml FLUSH ASDIRECTED PRN Peripheral IV Insertion Adult [OM.PC] Routine Oth 08/04/21 16:43 Ordered Medication Orders Piperacillin Sod/Tazobactam (Sod 3.375 gm/ Sodium Chloride) 100 mls @ 200 mls/hr IV Q6H BRIE Last Admin: 08/04/21 18:39 Dose: 200 mls/hr Documented by: MARY Sodium Chloride (Sodium Chloride 0.9% 10 Ml Syringe) 10 ml FLUSH ASDIRECTED PRN PRN Reason: Keep Vein Open Labs: Laboratory Tests 08/04/21 08/04/21 Range/Units 16:48 19:16 Lactic Acid 1.6 (0.4-2.0) mmol/L Specimen Type Urincc Urine Color Yellow Urine Appearance Clear Urine pH 5.5 (5.0-9.0) Ur Specific [place] <= 1.005 (1.005-1.030) Urine Protein Negative (NEGATIVE) mg/dL Urine Glucose (UA) Negative (NEGATIVE) mg/dL Urine Ketones Negative (NEGATIVE) mg/dL Urine Occult Blood Trace-lysed H (NEGATIVE) Urine Nitrite Negative (NEGATIVE) Urine Bilirubin Negative (NEGATIVE) Urine Urobilinogen 1.0 (0.2-1.0) E.U./dL Ur Leukocyte Esterase Negative (NEGATIVE) Urine RBC Not seen /HPF Urine WBC 0-5 /HPF Ur Epithelial Cells Occasional /LPF Urine Bacteria Occasional (NONE TO FEW) /HPF Meds: Medications Generic Name Dose Route Start Last Admin Trade Name Freq PRN Reason Stop Dose Admin Piperacillin Sod/Tazobactam 100 mls @ 200 mls/hr 08/04/21 18:15 08/04/21 18:39 Sod 3.375 gm/ Sodium Chloride IV 200 mls/hr Q6H BRIE Administration Sodium Chloride 10 ml 08/04/21 16:43 Sodium Chloride 0.9% 10 Ml Syringe FLUSH ASDIRECTED PRN Keep Vein Open Discontinued Medications Generic Name Dose Route Start Last Admin Trade Name Freq PRN Reason Stop Dose Admin Acetaminophen 1,000 mg 08/04/21 19:39 08/04/21 19:43 Acetaminophen 500 Mg Tab PO 08/04/21 19:40 1,000 mg ONETIME ONE Administration Sodium Chloride 1,000 mls @ 500 mls/hr 08/04/21 16:45 08/04/21 16:52 Normal Saline IV 08/04/21 18:44 500 mls/hr .BOLUS ONE Administration Iopamidol 100 ml 08/04/21 16:45 08/04/21 16:56 Iopamidol 612 Mg/Ml 100 Ml Bottle IVPUSH 08/04/21 16:46 100 ml ONETIME STA Administration Iopamidol Confirm 08/04/21 16:49 08/04/21 19:30 Iopamidol 612 Mg/Ml 100 Ml Bottle Administered 08/04/21 16:50 Not Given Dose 100 ml .ROUTE .STK-MED ONE Morphine Sulfate 5 mg 08/04/21 18:15 08/04/21 18:31 Morphine 10 Mg/Ml Syringe IVPUSH 08/04/21 18:16 5 mg ONETIME ONE Administration Ondansetron HCl 4 mg 08/04/21 18:16 08/04/21 18:35 Ondansetron 4 Mg/2 Ml Sdv IVPUSH 08/04/21 18:17 4 mg ONETIME ONE Administration - Radiology Interpretation Free Text/Narrative:: CT abdomen and pelvis obtained with IV contrast. heterogeneous fluid collection emanating from operative site into subhepatic space measuring [id number] cm. with internal hyperdensity consistent with post op hematoma, but cannot rule out absc ess formation. No indication of active hemorrhage noted. - Re-Assessments/Exams Free Text/Narrative Re-Assessment/Exam: IV access established. Pt. was given a liter of NS in ER. He was then started on NS at 100ml/hr. he was given morphine 5 mg IV and acetaminophen 1000mg PO when he developed a fever just prior to admission. He was also given zosyn 3.375gm IV , started on ER. Lactate noted to be within normal limits. Procalcitonin is a send out. Urine has yet to be collected at this point. Departure - Departure Time of Disposition: 20:00 Disposition: Home, Self-Care 01 Clinical Impression: Abdominal pain, Post-operative complication - Discharge Information Referrals: PCP,Unknown [Primary Care Provider] - Sepsis Event Note (ED) - Evaluation Sepsis Screening Result: No Definite Risk - Focused Exam Vital Signs: Vital Signs Temp Temp Pulse Resp BP Pulse Ox 08/04/21 19:43 38.8 C H 08/04/21 16:37 36.6 C 72 20 147/85 H 100 - Problem List Review Problem List Initiated/Reviewed/Updated: Yes - My Orders Last 24 Hours: My Active Orders 08/04/21 16:43 Peripheral IV Care [RC] . DIRECTED Abdomen Pelvis w Cont [CT] Stat Sodium Chloride 0.9% [Saline Flush] 10 ml FLUSH ASDIRECTED PRN Peripheral IV Insertion Adult [OM.PC] Routine 08/04/21 16:48 PROCALCITONIN [REF] Stat 08/04/21 18:15 Piperacillin/Tazobactam [Zosyn] 3.375 gm Sodium Chloride 0.9% [Normal Saline] 100 ml IV Q6H 08/04/21 19:42 Patient Status [ADT] Routine - Assessment/Plan Last 24 Hours: My Active Orders 08/04/21 16:43 Peripheral IV Care [RC] . DIRECTED Abdomen Pelvis w Cont [CT] Stat Sodium Chloride 0.9% [Saline Flush] 10 ml FLUSH ASDIRECTED PRN Peripheral IV Insertion Adult [OM.PC] Routine 08/04/21 16:48 PROCALCITONIN [REF] Stat 08/04/21 18:15 Piperacillin/Tazobactam [Zosyn] 3.375 gm Sodium Chloride 0.9% [Normal Saline] 100 ml IV Q6H 08/04/21 19:42 Patient Status [ADT] Routine Plan: Initially [facility] was called about this patient. I spoke with Dr. Constantino, who was resistive to accepting to patient at this point, as they have no IR services available in [place]. He advised either admitting and observing the patient locally or trying a course of oral augmentin on an outpatient basis. Subsequently contacted Dr. Lunsford at [facility] in [place]. That facility continues to be on diversion, as is [facility]. He, too, advised local acute admission, continued IV zosyn, trending of vitals, and labs, particularly CBC and lactate, and either discharge in 2-3 days on oral antibiotics, or repeat CT in 3 days if continuing to have fever/discomfort and possible transfer at that time. He states that the fluid collection is too small at this point to necessitate percutaneous drainage. Pt. was admitted acutely. He is a code 1. Pt. indicates that he is hungry which is reassuring so we will let him eat. Will continue IV zosyn 3.375gm IV every 6 hours. IV NS at 100ml/hr. Monitor vitals 2 4 hours. Strict I and O. Pt. had good pain control with IV morphine, which will be continued. Pt. will be started on docusate. Recheck CMP, CBC, lactate, CRP in AM. Tylenol for recurrent fever. Anticipate discharge in 3 days, pending improvement of symptoms, no significant change in labs or vital signs.
[2021-08-04] MEDS ORDERED: Morphine 4 MG/ML Syringe IVPUSH PRN (21:28)
[2021-08-04] MEDS ORDERED: Docusate Sodium 100 MG Cap PO PRN (21:29)
[2021-08-04] MEDS: Sodium Chloride 0.9% 1,000 ML IV SCH (21:30)
[2021-08-04] MEDS ORDERED: Ondansetron 4 MG/2 ML SDV IVPUSH PRN (21:32)
[2021-08-04] MEDS: Enoxaparin 40 MG/0.4 ML Syringe SUBCUT SCH (21:52)
[2021-08-04] MEDS: Piperacillin/Tazobactam 3.375 GM in Sodium Chloride 0.9% 100 ML IV SCH (23:23)
[2021-08-04] MEDS: Acetaminophen 325 MG Tab PO PRN (23:33)
[2021-08-05] MEDS: Piperacillin/Tazobactam 3.375 GM in Sodium Chloride 0.9% 100 ML IV SCH ×3 (05:28→19:27)
[2021-08-05] MEDS: Acetaminophen 325 MG Tab PO PRN ×3 (05:34→20:57)
[2021-08-05] MEDS ORDERED: Magnesium Hydroxide 400 MG/5 ML Susp 30 ML Cup PO PRN (06:06)
[2021-08-05] MEDS: Enoxaparin 40 MG/0.4 ML Syringe SUBCUT SCH (07:33)
[2021-08-05 07:50] LABS: ANION GAP 6.3 meq/L (7-15); CHLORIDE,CL 106 mmol/L (98-107); SODIUM,NA 140 mmol/L (136-145)
[2021-08-05] MEDS: Sodium Chloride 0.9% 1,000 ML IV SCH ×2 (08:17→19:27)
[2021-08-05] MEDS ORDERED: Acetaminophen/HYDROcodone 325-5 MG Tab PO PRN (08:22)
[2021-08-05] MEDS ORDERED: Morphine 4 MG/ML Syringe IVPUSH PRN (08:23)
--- NOTE | 2021-08-05 10:07 | PCM.PN ---
- General Info Date of Service: 08/05/21 Admission Dx/Problem (Free Text): post operative abdominal pain and fever abdominal fluid collection, hematoma vs early abscess s/p lap appy Subjective Update: pain is still 4-5/10 with norco. He complains that the norco doesn't control it as well as the morphine but understands that's not a realistic home plan. Hasn't had a BM yet today but did have MOM. no other acute concerns. Functional Status: Reports: Pain Controlled, Tolerating Diet, Urinating. Denies: New Symptoms Pain Score: 5 - Review of Systems General: Reports: Fever, Chills. Denies: Fatigue HEENT: Reports: No Symptoms Pulmonary: Reports: No Symptoms Cardiovascular: Reports: No Symptoms Gastrointestinal: Reports: Abdominal Pain. Denies: Decreased Appetite, Diarrhea, Hematochezia, Nausea, Vomiting Genitourinary: Reports: No Symptoms Musculoskeletal: Reports: No Symptoms Skin: Reports: No Symptoms Neurological: Reports: No Symptoms Psychiatric: Reports: No Symptoms - Patient Data Vitals - Most Recent: Last Vital Signs Temp 99.5 F 08/05/21 07:32 Pulse 93 08/05/21 07:32 Resp 16 08/05/21 07:32 BP 115/74 08/05/21 07:32 Pulse Ox 93 L 08/05/21 07:32 Weight - Most Recent: 165 lb I&O - Last 24 Hours: Intake & Output 08/04/21 08/05/21 08/05/21 22:59 06:59 14:59 Intake Total 1290 865 Balance 1290 865 Lab Results Last 24 Hours: Laboratory Results - last 24 hr 08/04/21 08/04/21 08/05/21 Range/Units 16:48 19:16 07:25 WBC 7.3 (4.0-10.2) K/uL RBC 3.43 L (4.33-5.41) M/uL Hgb 10.1 L D (13.1-16.8) g/dL Hct 30.0 L (39.0-49.0) % MCV 87.5 (84.0-98.0) fL MCH 29.4 (28.2-33.3) pg MCHC 33.7 (31.7-36.0) g/dL RDW 13.1 (11.2-14.1) % Plt Count 162 (150-350) K/uL Neut % (Auto) 83.9 H (45.0-80.0) % Lymph % (Auto) 8.0 L (10.0-50.0) % [place] % (Auto) 7.6 (2.0-14.0) % Eos % (Auto) 0.4 (0.0-5.0) % Baso % (Auto) 0.1 (0.0-2.0) % Neut # (Auto) 6.11 (1.40-7.00) K/uL Lymph # (Auto) 0.58 (0.50-3.50) K/uL [place] # (Auto) 0.55 (0.00-1.00) K/uL Eos # (Auto) 0.03 (0.00-0.50) K/uL Baso # (Auto) 0.01 (0.00-0.20) K/uL Sodium (136-145) mmol/L Potassium (3.5-5.1) mmol/L Chloride (98-107) mmol/L Carbon Dioxide (21.0-32.0) mmol/L Anion Gap (7-15) meq/L BUN (7-18) mg/dL Creatinine (0.51-1.17) mg/dL Est Cr Clr Drug Dosing mL/min Estimated GFR (MDRD) mL/min Glucose (70-99) mg/dL Lactic Acid 1.6 (0.4-2.0) mmol/L Calcium (8.5-10.1) mg/dL Total Bilirubin (0.2-1.0) mg/dL AST (15-37) U/L ALT (12-78) U/L Alkaline Phosphatase (46-116) IU/L C-Reactive Protein (<=0.9) mg/dL Total Protein (6.4-8.2) g/dL Albumin (3.4-5.0) g/dL Specimen Type Urincc Urine Color Yellow Urine Appearance Clear Urine pH 5.5 (5.0-9.0) Ur Specific [place] <= 1.005 (1.005-1.030) Urine Protein Negative (NEGATIVE) mg/dL Urine Glucose (UA) Negative (NEGATIVE) mg/dL Urine Ketones Negative (NEGATIVE) mg/dL Urine Occult Blood Trace-lysed H (NEGATIVE) Urine Nitrite Negative (NEGATIVE) Urine Bilirubin Negative (NEGATIVE) Urine Urobilinogen 1.0 (0.2-1.0) E.U./dL Ur Leukocyte Esterase Negative (NEGATIVE) Urine RBC Not seen /HPF Urine WBC 0-5 /HPF Ur Epithelial Cells Occasional /LPF Urine Bacteria Occasional (NONE TO FEW) /HPF 08/05/21 08/05/21 Range/Units 07:25 07:25 WBC (4.0-10.2) K/uL RBC (4.33-5.41) M/uL Hgb (13.1-16.8) g/dL Hct (39.0-49.0) % MCV (84.0-98.0) fL MCH (28.2-33.3) pg MCHC (31.7-36.0) g/dL RDW (11.2-14.1) % Plt Count (150-350) K/uL Neut % (Auto) (45.0-80.0) % Lymph % (Auto) (10.0-50.0) % [place] % (Auto) (2.0-14.0) % Eos % (Auto) (0.0-5.0) % Baso % (Auto) (0.0-2.0) % Neut # (Auto) (1.40-7.00) K/uL Lymph # (Auto) (0.50-3.50) K/uL [place] # (Auto) (0.00-1.00) K/uL Eos # (Auto) (0.00-0.50) K/uL Baso # (Auto) (0.00-0.20) K/uL Sodium 140 (136-145) mmol/L Potassium 4.2 (3.5-5.1) mmol/L Chloride 106 (98-107) mmol/L Carbon Dioxide 27.7 (21.0-32.0) mmol/L Anion Gap 6.3 L (7-15) meq/L BUN 14 (7-18) mg/dL Creatinine 1.10 (0.51-1.17) mg/dL Est Cr Clr Drug Dosing 91.25 mL/min Estimated GFR (MDRD) > 60 mL/min Glucose 117 H (70-99) mg/dL Lactic Acid 1.0 (0.4-2.0) mmol/L Calcium 8.0 L (8.5-10.1) mg/dL Total Bilirubin 2.3 H (0.2-1.0) mg/dL AST 37 (15-37) U/L ALT 140 H (12-78) U/L Alkaline Phosphatase 120 H (46-116) IU/L C-Reactive Protein 36.6 H (<=0.9) mg/dL Total Protein 6.3 L (6.4-8.2) g/dL Albumin 2.5 L (3.4-5.0) g/dL Specimen Type Urine Color Urine Appearance Urine pH (5.0-9.0) Ur Specific [place] (1.005-1.030) Urine Protein (NEGATIVE) mg/dL Urine Glucose (UA) (NEGATIVE) mg/dL Urine Ketones (NEGATIVE) mg/dL Urine Occult Blood (NEGATIVE) Urine Nitrite (NEGATIVE) Urine Bilirubin (NEGATIVE) Urine Urobilinogen (0.2-1.0) E.U./dL Ur Leukocyte Esterase (NEGATIVE) Urine RBC /HPF Urine WBC /HPF Ur Epithelial Cells /LPF Urine Bacteria (NONE TO FEW) /HPF Med Orders - Current: Current Medications Acetaminophen (Acetaminophen 325 Mg Tab) 650 mg PO Q4H PRN PRN Reason: Fever Last Admin: 08/05/21 05:34 Dose: 650 mg Documented by: Hydrocodone Bitart/Acetaminophen (Acetaminophen/Hydrocodone 325-5 Mg Tab) 1 tab PO Q4H PRN PRN Reason: Pain (moderate 4-6) Last Admin: 08/05/21 08:36 Dose: 1 tab Documented by: Docusate Sodium (Docusate Sodium 100 Mg Cap) 100 mg PO Q12H PRN PRN Reason: Constipation Enoxaparin Sodium (Enoxaparin 40 Mg/0.4 Ml Syringe) 40 mg SUBCUT DAILY [facility] Last Admin: 08/05/21 07:33 Dose: 40 mg Documented by: Sodium Chloride (Normal Saline) 1,000 mls @ 100 mls/hr IV ASDIRECTED [facility] Last Admin: 08/05/21 08:17 Dose: 100 mls/hr Documented by: Piperacillin Sod/Tazobactam (Sod 3.375 gm/ Sodium Chloride) 100 mls @ 200 mls/hr IV Q6H [facility] Last Admin: 08/05/21 05:28 Dose: 200 mls/hr Documented by: Magnesium Hydroxide (Magnesium Hydroxide 400 Mg/5 Ml Susp 30 Ml Cup) 30 ml PO DAILY PRN PRN Reason: Constipation Last Admin: 08/05/21 06:37 Dose: 30 ml Documented by: Morphine Sulfate (Morphine 4 Mg/Ml Syringe) 4 mg IVPUSH Q4H PRN PRN Reason: Pain (severe 7-10) Ondansetron HCl (Ondansetron 4 Mg/2 Ml Sdv) 4 mg IVPUSH Q6H PRN PRN Reason: Nausea/Vomiting Sodium Chloride (Sodium Chloride 0.9% 10 Ml Syringe) 10 ml FLUSH ASDIRECTED PRN PRN Reason: Keep Vein Open Discontinued Medications Acetaminophen (Acetaminophen 500 Mg Tab) 1,000 mg PO ONETIME ONE Stop: 08/04/21 19:40 Last Admin: 08/04/21 19:43 Dose: 1,000 mg Documented by: Sodium Chloride (Normal Saline) 1,000 mls @ 500 mls/hr IV .BOLUS ONE Stop: 08/04/21 18:44 Last Admin: 08/04/21 16:52 Dose: 500 mls/hr Documented by: Piperacillin Sod/Tazobactam (Sod 3.375 gm/ Sodium Chloride) 100 mls @ 200 mls/hr IV Q6H [facility] Last Admin: 08/04/21 18:39 Dose: 200 mls/hr Documented by: Iopamidol (Iopamidol 612 Mg/Ml 100 Ml Bottle) 100 ml IVPUSH ONETIME STA Stop: 08/04/21 16:46 Last Admin: 08/04/21 16:56 Dose: 100 ml Documented by: Iopamidol (Iopamidol 612 Mg/Ml 100 Ml Bottle) Confirm Administered Dose 100 ml .ROUTE .STK-MED ONE Stop: 08/04/21 16:50 Last Admin: 08/04/21 19:30 Dose: Not Given Documented by: Morphine Sulfate (Morphine 10 Mg/Ml Syringe) 5 mg IVPUSH ONETIME ONE Stop: 08/04/21 18:16 Last Admin: 08/04/21 18:31 Dose: 5 mg Documented by: Morphine Sulfate (Morphine 4 Mg/Ml Syringe) 4 mg IVPUSH Q4H PRN PRN Reason: Pain Last Admin: 08/04/21 23:23 Dose: 4 mg Documented by: Ondansetron HCl (Ondansetron 4 Mg/2 Ml Sdv) 4 mg IVPUSH ONETIME ONE Stop: 08/04/21 18:17 Last Admin: 08/04/21 18:35 Dose: 4 mg Documented by: - Exam Quality Assessment: DVT Prophylaxis. No: Supplemental Oxygen, Central Line/PICC, Urine Catheter, Skin Breakdown General: Alert, Oriented, Mild Distress HEENT: EOMI, Mucous Membr. Moist/[place] Neck: Supple, No JVD Lungs: Clear to Auscultation, Normal Respiratory Effort. No: Crackles, Rales, Rhonchi, Rub Cardiovascular: Regular Rate, Regular Rhythm, No Murmurs GI/Abdominal Exam: Soft, No Distention, Guarding, Tender (RUQ and RMQ painful to superficial palpation) (Male) Exam: Deferred Back Exam: Normal Inspection Extremities: Normal Inspection Skin: Warm, Moist Wound/Incisions: Healing Well Neurological: No New Focal Deficit Psy/Mental Status: Normal Affect, Normal Mood - Patient Data Lab Results Last 24 hrs: Laboratory Results - last 24 hr 08/04/21 08/04/21 08/05/21 Range/Units 16:48 19:16 07:25 WBC 7.3 (4.0-10.2) K/uL RBC 3.43 L (4.33-5.41) M/uL Hgb 10.1 L D (13.1-16.8) g/dL Hct 30.0 L (39.0-49.0) % MCV 87.5 (84.0-98.0) fL MCH 29.4 (28.2-33.3) pg MCHC 33.7 (31.7-36.0) g/dL RDW 13.1 (11.2-14.1) % Plt Count 162 (150-350) K/uL Neut % (Auto) 83.9 H (45.0-80.0) % Lymph % (Auto) 8.0 L (10.0-50.0) % [place] % (Auto) 7.6 (2.0-14.0) % Eos % (Auto) 0.4 (0.0-5.0) % Baso % (Auto) 0.1 (0.0-2.0) % Neut # (Auto) 6.11 (1.40-7.00) K/uL Lymph # (Auto) 0.58 (0.50-3.50) K/uL [place] # (Auto) 0.55 (0.00-1.00) K/uL Eos # (Auto) 0.03 (0.00-0.50) K/uL Baso # (Auto) 0.01 (0.00-0.20) K/uL Sodium (136-145) mmol/L Potassium (3.5-5.1) mmol/L Chloride (98-107) mmol/L Carbon Dioxide (21.0-32.0) mmol/L Anion Gap (7-15) meq/L BUN (7-18) mg/dL Creatinine (0.51-1.17) mg/dL Est Cr Clr Drug Dosing mL/min Estimated GFR (MDRD) mL/min Glucose (70-99) mg/dL Lactic Acid 1.6 (0.4-2.0) mmol/L Calcium (8.5-10.1) mg/dL Total Bilirubin (0.2-1.0) mg/dL AST (15-37) U/L ALT (12-78) U/L Alkaline Phosphatase (46-116) IU/L C-Reactive Protein (<=0.9) mg/dL Total Protein (6.4-8.2) g/dL Albumin (3.4-5.0) g/dL Specimen Type Urincc Urine Color Yellow Urine Appearance Clear Urine pH 5.5 (5.0-9.0) Ur Specific [place] <= 1.005 (1.005-1.030) Urine Protein Negative (NEGATIVE) mg/dL Urine Glucose (UA) Negative (NEGATIVE) mg/dL Urine Ketones Negative (NEGATIVE) mg/dL Urine Occult Blood Trace-lysed H (NEGATIVE) Urine Nitrite Negative (NEGATIVE) Urine Bilirubin Negative (NEGATIVE) Urine Urobilinogen 1.0 (0.2-1.0) E.U./dL Ur Leukocyte Esterase Negative (NEGATIVE) Urine RBC Not seen /HPF Urine WBC 0-5 /HPF Ur Epithelial Cells Occasional /LPF Urine Bacteria Occasional (NONE TO FEW) /HPF 08/05/21 08/05/21 Range/Units 07:25 07:25 WBC (4.0-10.2) K/uL RBC (4.33-5.41) M/uL Hgb (13.1-16.8) g/dL Hct (39.0-49.0) % MCV (84.0-98.0) fL MCH (28.2-33.3) pg MCHC (31.7-36.0) g/dL RDW (11.2-14.1) % Plt Count (150-350) K/uL Neut % (Auto) (45.0-80.0) % Lymph % (Auto) (10.0-50.0) % [place] % (Auto) (2.0-14.0) % Eos % (Auto) (0.0-5.0) % Baso % (Auto) (0.0-2.0) % Neut # (Auto) (1.40-7.00) K/uL Lymph # (Auto) (0.50-3.50) K/uL [place] # (Auto) (0.00-1.00) K/uL Eos # (Auto) (0.00-0.50) K/uL Baso # (Auto) (0.00-0.20) K/uL Sodium 140 (136-145) mmol/L Potassium 4.2 (3.5-5.1) mmol/L Chloride 106 (98-107) mmol/L Carbon Dioxide 27.7 (21.0-32.0) mmol/L Anion Gap 6.3 L (7-15) meq/L BUN 14 (7-18) mg/dL Creatinine 1.10 (0.51-1.17) mg/dL Est Cr Clr Drug Dosing 91.25 mL/min Estimated GFR (MDRD) > 60 mL/min Glucose 117 H (70-99) mg/dL Lactic Acid 1.0 (0.4-2.0) mmol/L Calcium 8.0 L (8.5-10.1) mg/dL Total Bilirubin 2.3 H (0.2-1.0) mg/dL AST 37 (15-37) U/L ALT 140 H (12-78) U/L Alkaline Phosphatase 120 H (46-116) IU/L C-Reactive Protein 36.6 H (<=0.9) mg/dL Total Protein 6.3 L (6.4-8.2) g/dL Albumin 2.5 L (3.4-5.0) g/dL Specimen Type Urine Color Urine Appearance Urine pH (5.0-9.0) Ur Specific [place] (1.005-1.030) Urine Protein (NEGATIVE) mg/dL Urine Glucose (UA) (NEGATIVE) mg/dL Urine Ketones (NEGATIVE) mg/dL Urine Occult Blood (NEGATIVE) Urine Nitrite (NEGATIVE) Urine Bilirubin (NEGATIVE) Urine Urobilinogen (0.2-1.0) E.U./dL Ur Leukocyte Esterase (NEGATIVE) Urine RBC /HPF Urine WBC /HPF Ur Epithelial Cells /LPF Urine Bacteria (NONE TO FEW) /HPF Result Diagrams: 08/05/21 07:25 08/05/21 07:25 Sepsis Event Note - Evaluation Sepsis Screening Result: No Definite Risk - Focused Exam Vital Signs: Vital Signs Temp Temp Pulse Resp BP Pulse Ox 08/05/21 07:32 99.5 F 93 16 115/74 93 L 08/05/21 05:34 100.8 F H 08/05/21 04:00 100.8 F H 101 H 16 138/84 95 08/05/21 00:00 100.8 F H 111 H 18 137/79 94 L 08/04/21 23:33 100.8 F H - Problem List Review Problem List Initiated/Reviewed/Updated: Yes - Assessment Assessment:: abdominal fluid collection; hematoma vs early abscess abdominal pain SIRS, fever 2/2 above s/p lap appy - discussed with operating MD and no IR services available at his facility. discussed with [facility] and recommendation for inpatient locally given diversion status - CT abdomen: [id number] fluid collection at appendectomy site Plan: - IV zosyn - Acetaminophen for tmax >100.4 - IV NS 1L at 100mL/hr then stop - Pain control with PO acetaminophen for mild and oxy IR for moderate and severe. DC IV morphine - will plan to repeat imaging in 3 days from admit if still febrile and pain is unchanged Constipation: - PRN miralax Code status: full code DVT prophylaxis: marco antonio hose. DC lovenox given concern for possible hematoma.
[2021-08-05] MEDS ORDERED: Polyethylene Glycol 3350 Powder 17 GM Packet PO PRN (10:11)
[2021-08-05] MEDS: oxyCODONE 5 MG Tab PO PRN ×2 (13:12→19:26)
[2021-08-06] MEDS: Piperacillin/Tazobactam 3.375 GM in Sodium Chloride 0.9% 100 ML IV SCH ×5 (00:08→23:53)
[2021-08-06] MEDS: oxyCODONE 5 MG Tab PO PRN ×3 (03:01→18:01)
[2021-08-06] MEDS: Acetaminophen 325 MG Tab PO PRN ×3 (05:35→23:52)
[2021-08-06 09:04] LABS: ANION GAP 7.9 meq/L (7-15); CHLORIDE,CL 103 mmol/L (98-107); SODIUM,NA 138 mmol/L (136-145)
--- NOTE | 2021-08-06 09:27 | PCM.PN ---
- General Info Date of Service: 08/06/21 Subjective Update: Pt. admitted evening of 08/04/2021 with abdominal pain secondary to hematoma vs. abscess formation post appendectomy. Pt. admitted on IV antibiotics and monitoring following consultation with surgery. Currently referral centers on diversion. Pt. reports that he is starting to have less pain. His oral pain medication was increased from lortab 5/325mg and morphine 4mg for breakthrough pain to Oxycodone 10mg every 6 hours. He states that the discomfort has improved over the past 24 hours. He did have a BM yesterday. Denies any problems with current constipation. He has been eating and drinking. Denies any fever or chills. No episodes of diaphoresis. Labs today-no leukocytosis. Lactic acid this AM 0.8. Electrolytes and renal function stable. Pt. has been running intermittent fever, Tmax in last 24 hours 39.6 yesterday evening. Functional Status: Reports: Pain Controlled, Tolerating Diet, Ambulating, Urinating - Review of Systems General: Reports: No Symptoms HEENT: Reports: No Symptoms Pulmonary: Reports: No Symptoms Cardiovascular: Reports: No Symptoms Gastrointestinal: Reports: Abdominal Pain Genitourinary: Reports: No Symptoms Musculoskeletal: Reports: No Symptoms Skin: Reports: No Symptoms Neurological: Reports: No Symptoms Psychiatric: Reports: No Symptoms - Patient Data Vitals - Most Recent: Last Vital Signs Temp 36.7 C 08/06/21 07:48 Pulse 86 08/06/21 07:48 Resp 16 08/06/21 07:48 BP 119/75 08/06/21 07:48 Pulse Ox 96 08/06/21 07:48 Weight - Most Recent: 74.843 kg I&O - Last 24 Hours: Intake & Output 08/05/21 08/06/21 08/06/21 22:59 06:59 14:59 Intake Total 1167 750 Balance 1167 750 Lab Results Last 24 Hours: Laboratory Results - last 24 hr 08/06/21 08/06/21 08/06/21 Range/Units 07:00 07:00 07:00 WBC 7.5 (4.0-10.2) K/uL RBC 3.26 L (4.33-5.41) M/uL Hgb 9.6 L (13.1-16.8) g/dL Hct 28.6 L (39.0-49.0) % MCV 87.7 (84.0-98.0) fL MCH 29.4 (28.2-33.3) pg MCHC 33.6 (31.7-36.0) g/dL RDW 12.7 (11.2-14.1) % Plt Count 187 (150-350) K/uL Neut % (Auto) 80.9 H (45.0-80.0) % Lymph % (Auto) 9.9 L (10.0-50.0) % [place] % (Auto) 8.4 (2.0-14.0) % Eos % (Auto) 0.5 (0.0-5.0) % Baso % (Auto) 0.3 (0.0-2.0) % Neut # (Auto) 6.05 (1.40-7.00) K/uL Lymph # (Auto) 0.74 (0.50-3.50) K/uL [place] # (Auto) 0.63 (0.00-1.00) K/uL Eos # (Auto) 0.04 (0.00-0.50) K/uL Baso # (Auto) 0.02 (0.00-0.20) K/uL Sodium 138 (136-145) mmol/L Potassium 4.0 (3.5-5.1) mmol/L Chloride 103 (98-107) mmol/L Carbon Dioxide 27.1 (21.0-32.0) mmol/L Anion Gap 7.9 (7-15) meq/L BUN 12 (7-18) mg/dL Creatinine 1.05 (0.51-1.17) mg/dL Est Cr Clr Drug Dosing 95.60 mL/min Estimated GFR (MDRD) > 60 mL/min Glucose 99 (70-99) mg/dL Lactic Acid 0.8 (0.4-2.0) mmol/L Calcium 8.2 L (8.5-10.1) mg/dL Med Orders - Current: Current Medications Acetaminophen (Acetaminophen 325 Mg Tab) 650 mg PO Q4H PRN PRN Reason: Fever Last Admin: 08/06/21 05:35 Dose: 650 mg Documented by: Sodium Chloride (Normal Saline) 1,000 mls @ 100 mls/hr IV ASDIRECTED [facility] Last Admin: 08/05/21 19:27 Dose: 100 mls/hr Documented by: Piperacillin Sod/Tazobactam (Sod 3.375 gm/ Sodium Chloride) 100 mls @ 200 mls/hr IV Q6H [facility] Last Admin: 08/06/21 05:33 Dose: 200 mls/hr Documented by: Ondansetron HCl (Ondansetron 4 Mg/2 Ml Sdv) 4 mg IVPUSH Q6H PRN PRN Reason: Nausea/Vomiting Oxycodone HCl (Oxycodone 5 Mg Tab) 10 mg PO Q6H PRN PRN Reason: Pain Last Admin: 08/06/21 03:01 Dose: 10 mg Documented by: Polyethylene Glycol (Polyethylene Glycol 3350 Powder 17 Gm Packet) 17 gm PO BEDTIME PRN PRN Reason: Constipation Sodium Chloride (Sodium Chloride 0.9% 10 Ml Syringe) 10 ml FLUSH ASDIRECTED PRN PRN Reason: Keep Vein Open Discontinued Medications Acetaminophen (Acetaminophen 500 Mg Tab) 1,000 mg PO ONETIME ONE Stop: 08/04/21 19:40 Last Admin: 08/04/21 19:43 Dose: 1,000 mg Documented by: Hydrocodone Bitart/Acetaminophen (Acetaminophen/Hydrocodone 325-5 Mg Tab) 1 tab PO Q4H PRN PRN Reason: Pain (moderate 4-6) Last Admin: 08/05/21 08:36 Dose: 1 tab Documented by: Docusate Sodium (Docusate Sodium 100 Mg Cap) 100 mg PO Q12H PRN PRN Reason: Constipation Enoxaparin Sodium (Enoxaparin 40 Mg/0.4 Ml Syringe) 40 mg SUBCUT DAILY [facility] Last Admin: 08/05/21 07:33 Dose: 40 mg Documented by: Sodium Chloride (Normal Saline) 1,000 mls @ 500 mls/hr IV .BOLUS ONE Stop: 08/04/21 18:44 Last Admin: 08/04/21 16:52 Dose: 500 mls/hr Documented by: Piperacillin Sod/Tazobactam (Sod 3.375 gm/ Sodium Chloride) 100 mls @ 200 mls/hr IV Q6H [facility] Last Admin: 08/04/21 18:39 Dose: 200 mls/hr Documented by: Iopamidol (Iopamidol 612 Mg/Ml 100 Ml Bottle) 100 ml IVPUSH ONETIME STA Stop: 08/04/21 16:46 Last Admin: 08/04/21 16:56 Dose: 100 ml Documented by: Iopamidol (Iopamidol 612 Mg/Ml 100 Ml Bottle) Confirm Administered Dose 100 ml .ROUTE .STK-MED ONE Stop: 08/04/21 16:50 Last Admin: 08/04/21 19:30 Dose: Not Given Documented by: Magnesium Hydroxide (Magnesium Hydroxide 400 Mg/5 Ml Susp 30 Ml Cup) 30 ml PO DAILY PRN PRN Reason: Constipation Last Admin: 08/05/21 06:37 Dose: 30 ml Documented by: Morphine Sulfate (Morphine 10 Mg/Ml Syringe) 5 mg IVPUSH ONETIME ONE Stop: 08/04/21 18:16 Last Admin: 08/04/21 18:31 Dose: 5 mg Documented by: Morphine Sulfate (Morphine 4 Mg/Ml Syringe) 4 mg IVPUSH Q4H PRN PRN Reason: Pain Last Admin: 08/04/21 23:23 Dose: 4 mg Documented by: Morphine Sulfate (Morphine 4 Mg/Ml Syringe) 4 mg IVPUSH Q4H PRN PRN Reason: Pain (severe 7-10) Ondansetron HCl (Ondansetron 4 Mg/2 Ml Sdv) 4 mg IVPUSH ONETIME ONE Stop: 08/04/21 18:17 Last Admin: 08/04/21 18:35 Dose: 4 mg Documented by: - Exam General: Alert, Oriented Lungs: Clear to Auscultation, Normal Respiratory Effort Cardiovascular: Regular Rate, Regular Rhythm GI/Abdominal Exam: Normal Bowel Sounds, Soft, No Organomegaly, No Distention, T derek (Seems less tender today than compared to admission.). No: No Mass, Guarding (Male) Exam: Deferred Extremities: Normal Inspection, Normal Range of Motion, Non-Tender Skin: Warm, Dry Neurological: No New Focal Deficit Psy/Mental Status: Alert, Labile Mood - Patient Data Lab Results Last 24 hrs: Laboratory Results - last 24 hr 08/06/21 08/06/21 08/06/21 Range/Units 07:00 07:00 07:00 WBC 7.5 (4.0-10.2) K/uL RBC 3.26 L (4.33-5.41) M/uL Hgb 9.6 L (13.1-16.8) g/dL Hct 28.6 L (39.0-49.0) % MCV 87.7 (84.0-98.0) fL MCH 29.4 (28.2-33.3) pg MCHC 33.6 (31.7-36.0) g/dL RDW 12.7 (11.2-14.1) % Plt Count 187 (150-350) K/uL Neut % (Auto) 80.9 H (45.0-80.0) % Lymph % (Auto) 9.9 L (10.0-50.0) % [place] % (Auto) 8.4 (2.0-14.0) % Eos % (Auto) 0.5 (0.0-5.0) % Baso % (Auto) 0.3 (0.0-2.0) % Neut # (Auto) 6.05 (1.40-7.00) K/uL Lymph # (Auto) 0.74 (0.50-3.50) K/uL [place] # (Auto) 0.63 (0.00-1.00) K/uL Eos # (Auto) 0.04 (0.00-0.50) K/uL Baso # (Auto) 0.02 (0.00-0.20) K/uL Sodium 138 (136-145) mmol/L Potassium 4.0 (3.5-5.1) mmol/L Chloride 103 (98-107) mmol/L Carbon Dioxide 27.1 (21.0-32.0) mmol/L Anion Gap 7.9 (7-15) meq/L BUN 12 (7-18) mg/dL Creatinine 1.05 (0.51-1.17) mg/dL Est Cr Clr Drug Dosing 95.60 mL/min Estimated GFR (MDRD) > 60 mL/min Glucose 99 (70-99) mg/dL Lactic Acid 0.8 (0.4-2.0) mmol/L Calcium 8.2 L (8.5-10.1) mg/dL Result Diagrams: 08/06/21 07:00 08/06/21 07:00 Sepsis Event Note - Evaluation Sepsis Screening Result: Severe Sepsis Risk - Focused Exam Vital Signs: Vital Signs Temp Temp Pulse Resp BP Pulse Ox 08/06/21 07:48 36.7 C 86 16 119/75 96 08/06/21 05:35 37.6 C 08/06/21 04:00 38.0 C 08/06/21 00:00 36.5 C 90 14 118/71 95 - Problem List Review Problem List Initiated/Reviewed/Updated: Yes - My Orders Last 24 Hours: My Active Orders 08/07/21 05:11 CBC WITH AUTO DIFF [HEME] AM COMPREHENSIVE METABOLIC PN,CMP [CHEM] AM CRP [C-REACTIVE PROTEIN] [CHEM] AM 08/07/21 07:00 LACTATE SEPSIS W/ REFLEX [CHEM] Routine - Assessment Assessment:: abdominal fluid collection; hematoma vs early abscess abdominal pain SIRS, fever 2/2 above s/p lap appy - discussed with operating MD and no IR services available at his facility. discussed with [facility] and recommendation for inpatient locally given diversion status - CT abdomen: [id number] fluid collection at appendectomy site Plan: - IV zosyn - Acetaminophen for tmax >100.4 - IV NS 1L at 100mL/hr then stop - Pain control with PO acetaminophen for mild and oxy IR for moderate and severe. DC IV morphine - will plan to repeat imaging in 3 days from admit if still febrile and pain is unchanged Constipation: - PRN miralax Code status: full code DVT prophylaxis: marco antonio bernal. DC lovenox given concern for possible hematoma. - Plan Plan:: Continue with IV zosyn 3.375gm every 6 hours IV fluids discontinued. He has a large bottle of water in his room and has been drinking copiously. CBC, CMP, lactate, and CRP in AM Anticipate discharge tomorrow on oral cipro, flagyl and oral oxycodone if patient continue to improve. Will make decision on whether to re-image the patient tomorrow based on exam and labs. Encourage ambulation today.
[2021-08-07] MEDS: oxyCODONE 5 MG Tab PO PRN (02:50)
[2021-08-07] MEDS: Piperacillin/Tazobactam 3.375 GM in Sodium Chloride 0.9% 100 ML IV SCH ×2 (05:38→11:57)
[2021-08-07] MEDS: Acetaminophen 325 MG Tab PO PRN (08:09)
[2021-08-07 08:29] LABS: CHLORIDE,CL 102 mmol/L (98-107); SODIUM,NA 138 mmol/L (136-145)
[2021-08-07] MEDS ORDERED: Iopamidol 612 MG/ML 100 ML Bottle IVPUSH ONE (09:18)
[2021-08-07] MEDS ORDERED: Iopamidol 612 MG/ML 100 ML Bottle ONE (09:32)
--- NOTE | 2021-08-07 12:00 | PCM.DCSUM1 ---
Discharge Summary - Hospital Course Free Text/Narrative:: Pt. admitted on with complaints of abdominal pain, fever, chills and fluid collection in abdomen s/p appendectomy on 07/30. Surgery was performed at [facility] in [place], [place]. Pt. was admitted on IV zosyn 3.375gm IV every 6 hours. Pt. continued to have fever during admission. Lactate and white count have all been within normal limits. CT scan with contrast was repeated today and collection was larger, appearance consistent with abscess formation. Images were pushed to [facility] PACS. [facility] was contacted regarding transfer of pt. for possible ex lap vs. IR aspiration of collection. Pt. was subsequently accepted by Dr. Pinto. Diagnosis: Stroke: No - Discharge Data Discharge Date: 08/07/21 Discharge Disposition: DC/Tfer to Acute Hospital 02 Condition: Good - Referral to [facility] Primary Care Physician: PCP Unknown - Discharge Diagnosis/Problem(s) (1) Postoperative abscess SNOMED Code(s): 316209419, [id number] ICD Code: T81.49XA - INFECTION FOLLOWING A PROCEDURE, OTHER SURGICAL SITE, INIT Status: Acute Current Visit: Yes (2) Abdominal pain SNOMED Code(s): 48841603 ICD Code: R10.9 - UNSPECIFIED ABDOMINAL PAIN Status: Acute Current Visit: Yes - Discharge Plan Home Medications: Home Meds . [No Known Home Meds] 07/30/21 [History] Forms: ED Department Discharge, Interfacility Transfer EMTALA Referrals: PCP,Unknown [Primary Care Provider] - - Discharge Summary/Plan Comment DC Time >30 min.: Yes Total # of Minutes for Discharge Time: 45 Discharge Summary/Plan Comment: Pt. will be transferred to [facility] via ground ALS ambulance. He can receive IV morphine for pain control enroute. He will be kept NPO. Operative report was obtained from [facility] [place] [place]. This, and other relevant documentation will be sent with patient. EMTALA form completed. Discussed findings with patient who agrees with plan of care. Pt. is a code 1. - General Info Functional Status: Reports: Pain Controlled - Review of Systems General: Reports: Fever, Malaise HEENT: Reports: No Symptoms Pulmonary: Reports: No Symptoms Cardiovascular: Reports: No Symptoms Gastrointestinal: Reports: Abdominal Pain Genitourinary: Reports: No Symptoms Musculoskeletal: Reports: No Symptoms Skin: Reports: No Symptoms Neurological: Reports: No Symptoms Psychiatric: Reports: No Symptoms - Patient Data Vitals - Most Recent: Last Vital Signs Temp 38.2 C H 08/07/21 09:46 Pulse 94 08/07/21 08:00 Resp 16 08/07/21 08:00 BP 123/84 08/07/21 08:00 Pulse Ox 98 08/07/21 08:00 Weight - Most Recent: 74.843 kg I&O - Last 24 hours: Intake & Output 08/06/21 08/07/21 08/07/21 22:59 06:59 14:59 Intake Total 360 1000 470 Balance 360 1000 470 Lab Results - Last 24 hrs: Laboratory Results - last 24 hr 08/07/21 08/07/21 08/07/21 Range/Units 07:26 07:26 07:26 WBC 7.5 (4.0-10.2) K/uL RBC 3.50 L (4.33-5.41) M/uL Hgb 10.2 L (13.1-16.8) g/dL Hct 30.7 L (39.0-49.0) % MCV 87.7 (84.0-98.0) fL MCH 29.1 (28.2-33.3) pg MCHC 33.2 (31.7-36.0) g/dL RDW 12.8 (11.2-14.1) % Plt Count 202 (150-350) K/uL Neut % (Auto) 80.3 H (45.0-80.0) % Lymph % (Auto) 9.9 L (10.0-50.0) % [place] % (Auto) 8.8 (2.0-14.0) % Eos % (Auto) 0.7 (0.0-5.0) % Baso % (Auto) 0.3 (0.0-2.0) % Neut # (Auto) 5.99 (1.40-7.00) K/uL Lymph # (Auto) 0.74 (0.50-3.50) K/uL [place] # (Auto) 0.66 (0.00-1.00) K/uL Eos # (Auto) 0.05 (0.00-0.50) K/uL Baso # (Auto) 0.02 (0.00-0.20) K/uL Sodium 138 (136-145) mmol/L Potassium 4.1 (3.5-5.1) mmol/L Chloride 102 (98-107) mmol/L Carbon Dioxide 29.0 (21.0-32.0) mmol/L Anion Gap 7.0 (7-15) meq/L BUN 11 (7-18) mg/dL Creatinine 1.05 (0.51-1.17) mg/dL Est Cr Clr Drug Dosing 95.60 mL/min Estimated GFR (MDRD) > 60 mL/min Glucose 107 H (70-99) mg/dL Lactic Acid 0.8 (0.4-2.0) mmol/L Calcium 8.2 L (8.5-10.1) mg/dL Total Bilirubin 1.9 H (0.2-1.0) mg/dL AST 27 (15-37) U/L ALT 88 H (12-78) U/L Alkaline Phosphatase 149 H (46-116) IU/L C-Reactive Protein 34.8 H (<=0.9) mg/dL Total Protein 6.7 (6.4-8.2) g/dL Albumin 2.3 L (3.4-5.0) g/dL Med Orders - Current: Current Medications Acetaminophen (Acetaminophen 325 Mg Tab) 650 mg PO Q4H PRN PRN Reason: Fever Last Admin: 08/07/21 08:09 Dose: 650 mg Documented by: Piperacillin Sod/Tazobactam (Sod 3.375 gm/ Sodium Chloride) 100 mls @ 200 mls/hr IV Q6H BRIE Last Admin: 08/07/21 05:38 Dose: 200 mls/hr Documented by: Ondansetron HCl (Ondansetron 4 Mg/2 Ml Sdv) 4 mg IVPUSH Q6H PRN PRN Reason: Nausea/Vomiting Oxycodone HCl (Oxycodone 5 Mg Tab) 10 mg PO Q6H PRN PRN Reason: Pain Last Admin: 08/07/21 02:50 Dose: 10 mg Documented by: Polyethylene Glycol (Polyethylene Glycol 3350 Powder 17 Gm Packet) 17 gm PO BEDTIME PRN PRN Reason: Constipation Sodium Chloride (Sodium Chloride 0.9% 10 Ml Syringe) 10 ml FLUSH ASDIRECTED PRN PRN Reason: Keep Vein Open Last Admin: 08/06/21 11:22 Dose: 10 ml Documented by: Discontinued Medications Acetaminophen (Acetaminophen 500 Mg Tab) 1,000 mg PO ONETIME ONE Stop: 08/04/21 19:40 Last Admin: 08/04/21 19:43 Dose: 1,000 mg Documented by: Hydrocodone Bitart/Acetaminophen (Acetaminophen/Hydrocodone 325-5 Mg Tab) 1 tab PO Q4H PRN PRN Reason: Pain (moderate 4-6) Last Admin: 08/05/21 08:36 Dose: 1 tab Documented by: Docusate Sodium (Docusate Sodium 100 Mg Cap) 100 mg PO Q12H PRN PRN Reason: Constipation Enoxaparin Sodium (Enoxaparin 40 Mg/0.4 Ml Syringe) 40 mg SUBCUT DAILY [facility] Last Admin: 08/05/21 07:33 Dose: 40 mg Documented by: Sodium Chloride (Normal Saline) 1,000 mls @ 500 mls/hr IV .BOLUS ONE Stop: 08/04/21 18:44 Last Admin: 08/04/21 16:52 Dose: 500 mls/hr Documented by: Piperacillin Sod/Tazobactam (Sod 3.375 gm/ Sodium Chloride) 100 mls @ 200 mls/hr IV Q6H [facility] Last Admin: 08/04/21 18:39 Dose: 200 mls/hr Documented by: Sodium Chloride (Normal Saline) 1,000 mls @ 100 mls/hr IV ASDIRECTED BRIE Last Admin: 08/05/21 19:27 Dose: 100 mls/hr Documented by: Iopamidol (Iopamidol 612 Mg/Ml 100 Ml Bottle) 100 ml IVPUSH ONETIME STA Stop: 08/04/21 16:46 Last Admin: 08/04/21 16:56 Dose: 100 ml Documented by: Iopamidol (Iopamidol 612 Mg/Ml 100 Ml Bottle) Confirm Administered Dose 100 ml .ROUTE .STK-MED ONE Stop: 08/04/21 16:50 Last Admin: 08/04/21 19:30 Dose: Not Given Documented by: Iopamidol (Iopamidol 612 Mg/Ml 100 Ml Bottle) 100 ml IVPUSH ONETIME ONE Stop: 08/07/21 09:19 Last Admin: 08/07/21 10:15 Dose: 100 ml Documented by: Iopamidol (Iopamidol 612 Mg/Ml 100 Ml Bottle) Confirm Administered Dose 100 ml .ROUTE .STK-MED ONE Stop: 08/07/21 09:33 Last Admin: 08/07/21 10:42 Dose: Not Given Documented by: Magnesium Hydroxide (Magnesium Hydroxide 400 Mg/5 Ml Susp 30 Ml Cup) 30 ml PO DAILY PRN PRN Reason: Constipation Last Admin: 08/05/21 06:37 Dose: 30 ml Documented by: Morphine Sulfate (Morphine 10 Mg/Ml Syringe) 5 mg IVPUSH ONETIME ONE Stop: 08/04/21 18:16 Last Admin: 08/04/21 18:31 Dose: 5 mg Documented by: Morphine Sulfate (Morphine 4 Mg/Ml Syringe) 4 mg IVPUSH Q4H PRN PRN Reason: Pain Last Admin: 08/04/21 23:23 Dose: 4 mg Documented by: Morphine Sulfate (Morphine 4 Mg/Ml Syringe) 4 mg IVPUSH Q4H PRN PRN Reason: Pain (severe 7-10) Ondansetron HCl (Ondansetron 4 Mg/2 Ml Sdv) 4 mg IVPUSH ONETIME ONE Stop: 08/04/21 18:17 Last Admin: 08/04/21 18:35 Dose: 4 mg Documented by: - Exam Quality Assessment: Reports: Supplemental Oxygen General: Reports: Alert, Oriented Lungs: Reports: Clear to Auscultation, Normal Respiratory Effort Cardiovascular: Reports: Regular Rate GI/Abdominal Exam: Normal Bowel Sounds, Soft, Tender (Male) Exam: Deferred Rectal (Males) Exam: Deferred Extremities: Normal Inspection, Normal Range of Motion Skin: Reports: Warm, Dry, Intact Neurological: Reports: No New Focal Deficit Psy/Mental Status: Reports: Alert, Normal Affect
== END 2021-08-07 12:50 | DRG 721 ==
LOC: LL.ED 16:36 → LL.MS 19:56
PROVIDERS: ADMIT Physician Assistant; ATTEND Physician Assistant
DX: T81.49XA Infection following a procedure, other surgical site, initial encounter (principal); K65.1 Peritoneal abscess; K59.00 Constipation, unspecified; Y83.8 Other surgical procedures as the cause of abnormal reaction of the patient, or of later complication, without mention of misadventure at the time of the procedure; Y92.89 Other specified places as the place of occurrence of the external cause
CPT/HCPCS: 36415; 74177; 80048; 80053; 81001; 83605; 84145; 85025; 86140; 96365; 96375; 96376; 99284-25; A9270-GY; J1650; J2270; J2405; J2543; J7030; Q9967